=== PATIENT | male | born 1955 | race Caucasian/White ===

== ENCOUNTER 2017-02-06 08:20 | Inpatient (IN) | payer OTHER ==
[2017-01-21 10:51] VITALS: Ht 177.8 cm; Wt 91.9 kg
--- NOTE | 2017-01-21 11:31 | PAT Medication Instructions ---
Service Date Jan 21, 2017. Current Home Medication List Allopurinol (Zyloprim), 300 MG PO QAM Atenolol (Tenormin), 50 MG PO BID Felodipine (Plendil), 10 MG PO QAM Meloxicam (Mobic), Unknown Dose PO QAM Potassium (Potassium), 1 TAB PO QAM Pravastatin (Pravachol ), 10 MG PO QAM Sertraline (Zoloft), 25 MG PO QAM Terazosin (Hytrin), 1 CAP PO HS Medication Instructions For Your Scheduled Surgery - Check with surgeon for instructions: Meloxicam (Mobic), Unknown Dose PO QAM - Hold the following medications the morning of surgery: Potassium (Potassium), 1 TAB PO QAM - Take the following medications the morning of surgery with a sip of water: Sertraline (Zoloft), 25 MG PO QAM Pravastatin (Pravachol ), 10 MG PO QAM Atenolol (Tenormin), 50 MG PO BID Allopurinol (Zyloprim), 300 MG PO QAM Felodipine (Plendil), 10 MG PO QAM - Take the following medications as scheduled the night before surgery: Terazosin (Hytrin), 1 CAP PO HS Atenolol (Tenormin), 50 MG PO BID If you have any questions please call us at [phone] or [phone] or [phone]
[2017-01-21 12:38] LABS: BASO % 0.6 %; BASO ABS # 0.04 K/uL (0-0.2); COMPLETE YES; EOS % 1.3 %; IG% 0.1 %; LYMPH % 20.8 %; LYMPH ABS # 1.48 K/uL (1.2-3.4); MEAN CELL VOLUME 97.6 fL (80-100); MEAN CORPUSCULAR HGB CONC 32.8 g/dl (32-36); MEAN PLATELET VOLUME 10.8 fL (7.4-10.4); MONO % 5.3 %; NEUT % 71.9 %; PLATELET COUNT 218 K/uL (130-400); WHITE BLOOD COUNT 7.12 K/uL (4.8-10.8)
[2017-01-21 12:41] LABS: URINE APPEARANCE CLEAR (CLEAR); URINE BILIRUBIN NEG (NEG); URINE COLOR YELLOW; URINE EPITHELIAL CELL AUTO 0-5 /lpf (0-5); URINE NITRITE NEG (NEG); URINE SPECIFIC GRAVITY 1.022 (1.000-1.030); UROBILINOGEN NEG (NEG)
[2017-01-21 12:42] LABS: PROTHROMBIN TIME (PATIENT) 10.6 SECONDS (9.0-12.0)
[2017-01-21 12:51] LABS: MANUAL MICROSCOPIC REQUIRED? NO; REVIEW REQ? NO
[2017-01-21 13:04] LABS: ESTIMATED AVERAGE GLUCOSE 97 mg/dl; HA1C FLAG Normal (Normal)
[2017-01-21 13:48] LABS: BUN/CREATININE RATIO 12.6 (10-20); CREATININE 0.67 mg/dl (0.60-1.40); POTASSIUM 4.5 mmol/L (3.5-5.1)
--- NOTE | 2017-02-05 14:17 | HISTORY & PHYSICAL EXAMINATION ---
DATE OF ADMISSION: 02/06/2017 CHIEF COMPLAINT: Left hip pain. HISTORY OF PRESENT ILLNESS: The patient is a 61-year-old gentleman with known osteoarthritis about his left hip. He has pain with ambulating and activities of daily living. He has pain with prolonged weightbearing and standing activities. He has difficulty with any kneeling, bending, or squatting activities. He has tried anti-inflammatory medications without significant relief. Due to ongoing pain and disability, the patient now desires to proceed with left total hip arthroplasty. PAST MEDICAL HISTORY: Hypertension and osteoarthritis. PAST SURGICAL HISTORY: Unknown. MEDICATIONS: Felodipine ER 10 mg daily, allopurinol 300 mg daily, sertraline 25 mg daily, terazosin 5 mg at bedtime, atenolol 50 mg 2 times daily, pravastatin 10 mg daily, potassium daily. ALLERGIES: THIOPENTAL, AZITHROMYCIN, PENICILLINS. SOCIAL HISTORY: He states a 13-oddn-iyrr smoking history and moderate alcohol consumption weekly. REVIEW OF SYSTEMS: Noncontributory. PHYSICAL EXAMINATION: GENERAL: Well-nourished, well-developed male who appears his stated age. HEENT: Normocephalic, atraumatic, extraocular movements intact, oropharynx pink and moist. NECK: Supple without adenopathy. LUNGS: Clear to auscultation bilaterally. HEART: Regular rate and rhythm. ABDOMEN: Soft, nontender, nondistended, obese. EXTREMITIES: The upper extremities are within normal limits. The left hip demonstrates limited range of motion. There is limitation of active and passive internal/external rotation with pain at end range. X-RAYS: X-rays were reviewed. He has moderate to severe osteoarthritis about the left hip with near complete loss of the joint space. There are osteophytes about the acetabulum. ASSESSMENT: Left hip degenerative joint disease. PLAN: Risks versus benefits were discussed. Consent was obtained. The patient's primary care physician is Dr. Deleon. We will proceed with left total hip arthroplasty upon preoperative workup and medical clearance.
[~2017-02-06] VITALS: Ht 177.8 cm; Wt 91.9 kg
[2017-02-06] VITALS (9 sets, daily range): BP systolic 114–160; BP diastolic 72–88; PULSE 58–73; TEMP 36.8–37.1; O2SAT 96–100
[2017-02-06] MEDS: TRANEXAMIC ACID INJ 1,000 MG in SODIUM CHLORIDE 0.9% 100ML 100 ML IV SCH ×2 (06:30→09:50)
--- NOTE | 2017-02-06 07:06 | History & Physical Bridge Note ---
H&P Re-Evaluation Bridge Note: I have examined the patient, reviewed the History & Physical and in the interval since the performance of the History & Physical I have noted the following changes of clinical significance: No changes noted
[~2017-02-06 08:20] MED LIST: ACETAMINOPHEN 500 MG TAB PO SCH; ALLO300T2 PO; ATEN50TA8 PO; BUPIVACAINE 0.5 % 5 MG/1 ML PF 10ML VIAL ONE; CEFAZOLIN 2000 MG/60 ML D5W 60 ML IV SCH; CeleBREX 200 MG CAP PO SCH; DEXAMETHASONE 4 MG TAB PO SCH; FAMOTIDINE 20 MG TAB PO SCH; FELO10TA2 PO; GABAPENTIN 300 MG CAP PO SCH; LACTATED RINGER'S 1000ML 1,000 ML IV SCH; LACTATED RINGER'S 1000ML 500 ML IV SCH; MELO7.5T5 PO; METOCLOPRAMIDE HCL 10 MG TAB PO SCH; POTA99TA PO; PRAV20TA PO; SERT25TA PO; TERA5CAP PO; TRANEXAMIC ACID INJ 1,000 MG in SODIUM CHLORIDE 0.9% 100ML 100 ML IV SCH
[2017-02-06] MEDS ORDERED: LIDOCAINE HCL 2% 2 ML VIAL (20MG/ML) ONE (08:28)
[2017-02-06] MEDS ORDERED: PROPOFOL IV EMULSION 10 MG/ML 20 ML VIAL IV ONE ×2 (08:28→11:24)
[2017-02-06] MEDS ORDERED: MIDAZOLAM HCL 1 MG/ML 2ML VIAL ONE (08:29)
[2017-02-06] MEDS ORDERED: FENTANYL CITRATE INJ 50 MCG/1 ML 2 ML VIAL ONE (08:29)
[2017-02-06] MEDS ORDERED: MULT-506 PO (08:46)
[2017-02-06] MEDS ORDERED: FENTANYL CITRATE INJ 50 MCG/1 ML 2 ML VIAL IV PRN (09:30)
[2017-02-06] MEDS ORDERED: ONDANSETRON INJ 2 MG/ML 2 ML VIAL IV PRN ×2 (09:30→11:45)
[2017-02-06] MEDS ORDERED: NALOXONE HCL 0.4 MG/1 ML VIAL/CARP IV PRN (09:30)
[2017-02-06] MEDS ORDERED: PHENYLEPHRINE 100MCG/ML 5ML SYR IV PRN (09:30)
[2017-02-06] MEDS ORDERED: ATROPINE SULFATE 0.1 MG/ML 5ML SYR IV PRN (09:30)
[2017-02-06] MEDS ORDERED: LABETALOL HCL IV 5 MG/ML 20ML IV PRN (09:30)
[2017-02-06] MEDS ORDERED: HYDROmorphone INJ 2 MG/ML SYR/VIAL IV PRN (09:30)
[2017-02-06] MEDS ORDERED: FLUMAZENIL 0.1 MG/1 ML 10 ML VIAL IV PRN (09:30)
[2017-02-06] MEDS ORDERED: EpHEDrine SULFATE INJ 50 MG/ML AMP IV PRN (09:30)
[2017-02-06] MEDS ORDERED: MEPERIDINE HCL 25 MG/ML CARP IV PRN (09:30)
[2017-02-06] MEDS ORDERED: POVIDONE-IODINE OP SOLN 30 ML BTL ONE (09:50)
[2017-02-06] MEDS ORDERED: BACITRACIN 50000 UNIT VIAL ONE (09:50)
[2017-02-06] MEDS ORDERED: ROPIVACAINE 5MG/ML 30 ML 150 MG, BUPIVACAINE/EPINEPHR 0.5% MPF 30 ML, KETOROLAC TROMETH... INFIL SCH ×7 (10:15)
[2017-02-06] MEDS ORDERED: ONDANSETRON INJ 2 MG/ML 2 ML VIAL ONE (10:54)
[2017-02-06] MEDS ORDERED: EpHEDrine SULFATE INJ 50 MG/ML AMP ONE (11:00)
--- NOTE | 2017-02-06 11:36 | [facility] Post Operative Brief Note ---
Immediate Operative Summary Operative Date Feb 06, 2017. Pre-Operative Diagnosis Left Hip Degenerative Joint Disease Post-Operative Diagnosis Left Hip Degenerative Joint Disease Procedure(s) Performed Left Total Hip Arthroplasty Surgeon Dr. Chun Garcia [place] Supervisor Surgeon(s) Kushal Watt PA-C Estimated Blood Loss 100ml Findings severe OA Specimens A. Left Femoral Head Complication(s) None Disposition Recovery Room / PACU
[2017-02-06] MEDS ORDERED: BISACODYL 10 MG SUPP PR PRN (11:45)
[2017-02-06] MEDS ORDERED: MoRPHine SULFATE 2 MG/ML CARP IV PRN (11:45)
[2017-02-06] MEDS ORDERED: ALUMINUM/MAGNESIUM/SIMETH (MAALOX MAX) 30 ML UDC PO PRN (11:45)
[2017-02-06] MEDS ORDERED: METOCLOPRAMIDE HCL INJ 5 MG/ML 2 ML VIAL IV PRN (11:45)
[2017-02-06] MEDS ORDERED: SOD PHOSPHATE/SOD BIPHOSPHATE ENEMA 132 ML BTL PR PRN (11:45)
[2017-02-06] MEDS ORDERED: DiphenhydrAMINE HCL 50 MG/ML VIAL IV PRN (11:45)
[2017-02-06] MEDS ORDERED: TAMSULOSIN HCL 0.4 MG CAP PO PRN (11:45)
[2017-02-06] MEDS ORDERED: MAGNESIUM HYDROXIDE SUSP 30 ML UDC PO PRN (11:45)
[2017-02-06] MEDS ORDERED: ZOLPIDEM TARTRATE 5 MG TAB PO PRN (11:45)
--- NOTE | 2017-02-06 12:03 | OPERATIVE REPORT ---
DATE OF OPERATION: 02/06/2017 PREOPERATIVE DIAGNOSIS: Osteoarthritis left hip. POSTOPERATIVE DIAGNOSIS: Osteoarthritis left hip. PROCEDURE: Left connective total hip arthroplasty. SURGEON: Dr. Garcia. FLAT BED OPERATOR: Kushal Watt PA-C. ANESTHESIA: Spinal. COMPLICATIONS: None. OPERATION AND FINDINGS: PROCEDURE: Following induction of adequate spinal anesthesia, the patient was placed in right lateral decubitus position and left Julianna-Langenbeck incision was made. Subcutaneous tissue was sharply dissected. Electrocautery used for hemostasis. The fascia was incised throughout the length of the wound and a villasenor scissor placed beneath the short external rotators. The pyriformis was tagged with #1 Vicryl. The short external rotators were divided from the posterior aspect of the femur using electrocautery. These were swept posteriorly. A T-capsulotomy incision was made and the hip was dislocated using a combination of flexion, adduction, and internal rotation. Exposure of the femoral neck with old-style Hohmann and a blunt Hohmann was carried out and a femoral rasp was utilized as a guide for making the appropriate level femoral neck cut. This bone fragment was removed and reserved on the back table. Next, attention was turned to the acetabulum where bone hook was used to retract the femur while the offset retractors were placed anterior and posteriorly. A double-angled Hohmann was placed in superior and anterior position exposing the acetabulum nicely. Acetabular labrum as well as posterior capsule elements were removed using a long knife and a long pickup. Fovea centralis was cleared of all soft tissue. Sequential reamings were carried up to a size 56 and decision was made to proceed with impaction of a size 56 trabecular metal cup. This was impacted and held using a single 35 mm bone screw. The acetabular liner was placed with 15 of elevated posterior wall in the superior and posterior position. Next, attention was turned to the femoral portion of the case where a Bovie and pickup was used to further clear short external rotators from their insertion on the femur. Box osteotome was used to gain access to the femoral canal and the T-handled rasp and a rattail rasp were used to further open and lateral the canal. Sequentially raspings were carried up to a size 6 which gave good fit and fill of the proximal femur. A trial reduction was carried out and size 6 offset femoral neck component was chosen as the size to be used. A +2.5 x 36 mm ceramic femoral head was impacted into position, +0 head was utilized. The trial reduction was stable in all degrees of rotation with no [id number] impingement. The hip was dislocated. The trial components were removed and the final femoral stem, neck, and femoral head combination were assembled on the back table and impacted into position. Hip was relocated. Range of motion checked once again successful and the wound was irrigated. The pyriformis repaired to the greater trochanter using #1 Vicryl [id number] suture. A Hemovac drain was placed and the fascia was closed using #1 Vicryl, subcutaneous tissue was closed using 0 Dexon, and skin was closed with heron. Sterile dressing of Adaptic, 4 x 4's, ABDs, and foam tape was applied. The patient tolerated the procedure well. Recovery room stable. Due to the complex nature of the procedure, the entire surgery was performed with the operational assistance of Kushal Watt PA-C. The certified surgical tech/first assistant, under direct supervision, was involved in the actual performance of all aspects of the surgical procedure including hemostasis, tissue retraction and incision, instrument management, patient positioning, and wound closure. I attest to the content of the Intraoperative Record and any orders documented therein. Any exception s are noted below.
[2017-02-06] MEDS ORDERED: MoRPHine SULFATE 10 MG/ML CARP/VIAL IV PRN (12:30)
[2017-02-06] MEDS ORDERED: MoRPHine SULFATE 4 MG/ML 1 ML CARP\\VIAL IV PRN (12:30)
--- NOTE | 2017-02-06 13:18 | Anesthesiology Progress Note ---
Anesthesia Post Op Note Date & Time Feb 06, 2017 at 13:18 Vital Signs Pain Intensity: 0 Vital Signs Past 12 Hours Date Time Temp Pulse Resp B/P (MAP) Pulse Ox O2 Delivery O2 Flow Rate FiO2 02/06/17 12:45 37.0 64 14 122/69 98 Nasal Cannula 2 02/06/17 12:35 66 14 145/59 98 Nasal Cannula 2 02/06/17 12:25 69 14 112/72 98 Nasal Cannula 2 02/06/17 12:15 63 14 126/72 99 Oxymask 10 02/06/17 12:05 37.0 67 14 121/69 100 Oxymask 10 02/06/17 08:49 36.9 58 18 160/88 96 Room Air Notes Mental Status: alert / awake / arousable, participated in evaluation Pt Amnestic to Procedure: Yes Nausea / Vomiting: adequately controlled Pain: adequately controlled Airway Patency, RR, SpO2: stable & adequate BP & HR: stable & adequate Hydration State: stable & adequate Neuraxial Anesthesia: was administered, sensory block is resolving Anesthetic Complications: no major complications apparent
[2017-02-06] MEDS: D5W AND 1/2NSS + 20MEQ KCL 1,000 ML IV SCH (14:08)
[2017-02-06] MEDS: ACETAMINOPHEN IV 1,000 MG in EMPTY BAG 0 ML IV SCH ×2 (14:39→21:42)
[2017-02-06] MEDS: KETOROLAC TROMETHAMINE 30 MG/ML VIAL IV. SCH ×2 (14:42→19:37)
--- NOTE | 2017-02-06 15:29 | Discharge Instructions ---
Discharge Instructions Date of Service Feb 06, 2017. Admission Reason for Admission: Left Hip Degenerative Joint Disease Discharge Discharge Diagnosis / Problem: Left hip arthritis Discharge Goals Goal(s): Decrease discomfort, Improve function Activity Recommendations Activity Limitations: as noted below Weightbearing Status: Left weightbearing (as tolerated) . Instructions / Follow-Up Instructions / Follow-Up ACTIVITY RECOMMENDATIONS: SELF CARE INSTRUCTIONS AFTER TOTAL HIP REPLACEMENT Until the incision and soft tissues around your hip have healed, there is a possibility that the hip prosthesis could dislocate. A. Observe the following precautions to prevent dislocation: 1. Don't bend your hip greater than 90 degrees. 2. Avoid crossing your legs or ankles while standing or lying. 3. Sit with your feet placed 6 inches apart. 4. When sitting, keep your knees below your hips. Sit on a firm surface, avoid deep, soft chairs and couches. Use an elevated toilet seat in the bathroom. 5. Don't bend over at the waist. Use a long handled shoehorn and a sock aid to help you put on your shoes and socks. A right of way clearer can help you strip picker objects that are too high or too low to reach. 6. Keep car riding to a minimum for at least one month after surgery. B. Your balance may be shaky for a while. Use crutches or a walker until directed by your doctor. C. Use hand rails when walking on stairs. D. Wear low heeled shoes with non-slip soles. E. Be sure that your floors are free of things that could trip you - throw rugs , electrical cords, small objects. Avoid wet and waxed floors, especially with crutches and canes. F. Try to walk several times a day with rest periods between. G. Continue with all the exercises taught to you in the hospital. Again, make walking a part of your daily routine. SPECIAL CARE INSTRUCTIONS: VERY IMPORTANT TO READ AND REVIEW A. You may still be at risk for phlebitis and blood clots. 1. Wear surgical stockings (MITZI hose) for 2 weeks after surgery to improve circulation and reduce swelling. 2. Take Aspirin 81mg twice daily for 4 weeks or as directed by your doctor. This is your blood thinner. 3. High risk patients may be prescribed a stronger blood thinner if necessary. 4. If you are on Coumadin normally, your family doctor/leather repairer should monitor your blood work. Expect a phone call the day of or the day after bloodwork is drawn to adjust your dosage. B. You must take antibiotics before having dental work, bladder, bowel and other surgery. Your doctor will provide you with a permanent card to carry describing precautions. C. Call [facility] if you have a fever, redness or swelling around the incision, cloudy drainage from incision, or sudden increase in pain in your hip, not relieved by your regular pain medication. D. Please call the office at if you have any concerns or questions about your operation or recovery. * YOU MAY SHOWER, NO TUB BATHS UNTIL CLEARED BY YOUR DOCTOR. * WEAR MITZI HOSE 20 HOURS PER DAY FOR 2 WEEKS. * YOU SHOULD USE A WALKER OR CRUTCHES FOR 2-4 WEEKS. THIS WILL HELP PREVENT STRAIN ON YOUR HIP MUSCLE AND ALLOW IT TO HEAL PROPERLY. YOU MAY WEAN TO A CANE TOLERATED. * MOST PATIENTS WILL HAVE HOME NURSING FOR THERAPY. IF YOU DECIDE TO DO OUTPATIENT PHYSICAL THERAPY, PLEASE SCHEDULE THIS 3 TIMES PER WEEK. Silverlon- This is a large adhesive bandage that contains silver ions. This helps your incision heal by fighting off bacteria and protecting it from the outside environment. You are permitted to shower with this dressing. This will remain on your incision for 7 days and then should be removed. Some visible blood or drainage through the dressing window is normal. If there is significant drainage or leaking noted before the 7 days notify your doctor's office immediately. Once removed, keep incision clean and dry. If there is any drainage or redness noted, please call your surgeon. FOLLOW UP VISIT: If appointment is not already scheduled: Please call [facility] to make a follow-up appointment for 2 weeks after your surgery at . Current Hospital Diet Patient's current hospital diet: Regular Diet Discharge Diet Recommended Diet: Regular Diet Procedures Procedures Performed: Left Total Hip Arthroplasty Pending Studies Studies pending at discharge: no Laboratory Results Hemoglobin A1c Test 01/21/17 11:35 Range/Units Estimated Average Glucose 97 mg/dl Hemoglobin A1c 5.0 4.5-5.6 % Medical Emergencies . Who to Call and When: Medical Emergencies: If at any time you feel your situation is an emergency, please call 911 immediately. . Non-Emergent Contact Non-Emergency issues call your: Surgeon Call Non-Emergent contact if: temperature is above 101.5, your pain is not controlled, wound has increased drainage, wound has increased redness . "Provider Documentation" section prepared by Kushal Watt PA-C. . VTE Core Measure Inpt VTE Proph given/why not?: Other Anticoagulation (ASA 81mg bid), T.E.D. Stockings, SCD's [place] Drug Monitoring Program Search Results: patient reviewed within database, no issues identified
--- NOTE | 2017-02-06 15:40 | DIAGNOSTIC IMAGING REPORT ---
LEFT PELVIS/UNILATERAL HIP 1 VIEW HISTORY: 61 years-old Male s/p total hip arthroplasty. COMPARISON: None available TECHNIQUE: AP view the pelvis with frog-leg view of the left hip FINDINGS: There has been recent left total hip arthroplasty without periprosthetic fracture or malalignment. Expected postsurgical soft tissue swelling and air seen about the left hip with surgical drain in place. Vascular calcifications are noted. [id number] degenerative changes involve the right femoral acetabular joint. IMPRESSION: Status post left total hip arthroplasty without complication. The above report was generated using voice recognition software. It may contain grammatical, syntax or spelling errors. Electronically signed by: Asa Blunt M.D. 02/06/2017 3:38 PM Dictated Date/Time: 02/06/2017 3:37 PM
[2017-02-06] MEDS: FERROUS GLUCONATE 324 MG TAB PO SCH (17:29)
[2017-02-06] MEDS ORDERED: TRANEXAMIC ACID INJ 1,000 MG in SODIUM CHLORIDE 0.9% 100ML 100 ML IV ONE (18:00)
[2017-02-06] MEDS: CEFAZOLIN IV 2,000 MG in DEXTROSE 5% 50ML 50 ML IV SCH (18:04)
[2017-02-06] MEDS: OXYCODONE HCL IR 5 MG TAB (IMMEDIATE RELEASE) PO PRN (20:38)
[2017-02-06] MEDS: ASPIRIN 81 MG ECTAB PO SCH (20:38)
[2017-02-06] MEDS: SENNA 8.6 MG TAB PO SCH (20:39)
[2017-02-06] MEDS: DOCUSATE SODIUM 100 MG CAP PO SCH (20:39)
[2017-02-07] VITALS (9 sets, daily range): BP systolic 113–172; BP diastolic 67–98; PULSE 58–69; TEMP 36.8–37.3; O2SAT 97–99
[2017-02-07] MEDS: KETOROLAC TROMETHAMINE 30 MG/ML VIAL IV. SCH ×2 (00:03→05:42)
[2017-02-07] MEDS: D5W AND 1/2NSS + 20MEQ KCL 1,000 ML IV SCH (00:03)
[2017-02-07] MEDS: CEFAZOLIN IV 2,000 MG in DEXTROSE 5% 50ML 50 ML IV SCH (02:29)
[2017-02-07] MEDS: ACETAMINOPHEN IV 1,000 MG in EMPTY BAG 0 ML IV SCH ×3 (05:42→22:46)
[2017-02-07 06:14] LABS: BASO % 0.1 %; BASO ABS # 0.01 K/uL (0-0.2); COMPLETE YES; EOS % 0.1 %; HEMATOCRIT 36.9 % (42-52); IG% 0.3 %; LYMPH ABS # 1.04 K/uL (1.2-3.4); MEAN CELL VOLUME 95.1 fL (80-100); MEAN CORPUSCULAR HEMOGLOBIN 30.9 pg (25-34); MEAN CORPUSCULAR HGB CONC 32.5 g/dl (32-36); MEAN PLATELET VOLUME 10.6 fL (7.4-10.4); MONO % 9.1 %; NEUT % 79.4 %; PLATELET COUNT 175 K/uL (130-400); RED BLOOD COUNT 3.88 M/uL (4.7-6.1); WHITE BLOOD COUNT 9.42 K/uL (4.8-10.8)
--- NOTE | 2017-02-07 07:07 | Orthopedic Progress Note ---
Orthopedic Progress Note Date of Service Feb 07, 2017. Subjective Post OP Day: 1 Reports: feeling well Objective N/V intact, dressing C/D/I (Hemovac in place), toes mobile Date Time Temp Pulse Resp B/P (MAP) Pulse Ox O2 Delivery O2 Flow Rate FiO2 02/07/17 03:22 36.9 58 16 141/78 (99) 99 Room Air 02/07/17 00:05 Room Air 02/06/17 23:44 36.8 67 16 137/76 (96) 96 Room Air 02/06/17 18:59 36.9 73 16 138/82 (100) 100 Nasal Cannula 2.0 02/06/17 16:08 36.9 66 16 125/78 (94) 100 Nasal Cannula 2.0 02/06/17 15:40 Nasal Cannula 2.0 02/06/17 15:07 37.1 63 16 126/77 (93) 99 Nasal Cannula 2.0 02/06/17 14:19 65 18 132/82 (99) 96 02/06/17 14:05 67 18 114/72 (86) 99 02/06/17 13:35 Nasal Cannula 2.0 02/06/17 13:35 65 16 126/83 (97) 97 Nasal Cannula 2.0 02/06/17 13:05 37.0 69 16 135/77 (96) 96 Nasal Cannula 2.0 02/06/17 13:05 96 Nasal Cannula 2.0 02/06/17 13:05 96 Nasal Cannula 2.0 02/06/17 12:45 37.0 64 14 122/69 98 Nasal Cannula 2 02/06/17 12:35 66 14 145/59 98 Nasal Cannula 2 02/06/17 12:25 69 14 112/72 98 Nasal Cannula 2 02/06/17 12:15 63 14 126/72 99 Oxymask 10 02/06/17 12:05 37.0 67 14 121/69 100 Oxymask 10 02/06/17 08:49 36.9 58 18 160/88 96 Room Air Laboratory Results 24 Hours: Test 02/07/17 04:59 White Blood Count 9.42 K/uL Red Blood Count 3.88 M/uL Hemoglobin 12.0 g/dL Hematocrit 36.9 % Mean Corpuscular Volume 95.1 fL Mean Corpuscular Hemoglobin 30.9 pg Mean Corpuscular Hemoglobin Concent 32.5 g/dl Platelet Count 175 K/uL Mean Platelet Volume 10.6 fL Neutrophils (%) (Auto) 79.4 % Lymphocytes (%) (Auto) 11.0 % Monocytes (%) (Auto) 9.1 % Eosinophils (%) (Auto) 0.1 % Basophils (%) (Auto) 0.1 % Neutrophils # (Auto) 7.47 K/uL Lymphocytes # (Auto) 1.04 K/uL Monocytes # (Auto) 0.86 K/uL Eosinophils # (Auto) 0.01 K/uL Basophils # (Auto) 0.01 K/uL Assessment & Plan Assessment: 61 yo male stable POD #1 s/p left FELIPA Plan: 1. Med management 2. DVT prophylaxis- ASA, SCDs 3. PT/OT 4. D/C planning- home w/ HH
--- NOTE | 2017-02-07 08:11 | Anesthesiology Progress Note ---
Anesthesia Post Op Note Date & Time Feb 07, 2017 at 08:11 Vital Signs Pain Intensity: 2.0 Vital Signs Past 12 Hours Date Time Temp Pulse Resp B/P (MAP) Pulse Ox O2 Delivery O2 Flow Rate FiO2 02/07/17 08:07 99 Room Air 02/07/17 07:59 168/97 (120) 02/07/17 07:56 36.8 64 18 172/98 (122) 99 Room Air 02/07/17 03:22 36.9 58 16 141/78 (99) 99 Room Air 02/07/17 00:05 Room Air 02/06/17 23:44 36.8 67 16 137/76 (96) 96 Room Air Notes Mental Status: alert / awake / arousable, participated in evaluation Pt Amnestic to Procedure: Yes Nausea / Vomiting: adequately controlled Pain: adequately controlled Airway Patency, RR, SpO2: stable & adequate BP & HR: stable & adequate Hydration State: stable & adequate Neuraxial Anesthesia: sensory block resolved Anesthetic Complications: no major complications apparent
[2017-02-07] MEDS: FERROUS GLUCONATE 324 MG TAB PO SCH ×3 (09:19→18:20)
[2017-02-07] MEDS: DOCUSATE SODIUM 100 MG CAP PO SCH ×2 (09:20→20:14)
[2017-02-07] MEDS: ASPIRIN 81 MG ECTAB PO SCH ×2 (09:20→20:14)
[2017-02-07] MEDS: PANTOprazole SOD 40 MG TAB PO SCH (09:20)
[2017-02-07] MEDS: MULTIVITAMIN TAB PO SCH (09:20)
[2017-02-07] MEDS ORDERED: NURSING VERBAL MED ORDER ONE (11:30)
[2017-02-07] MEDS: OXYCODONE HCL IR 5 MG TAB (IMMEDIATE RELEASE) PO PRN (18:24)
[2017-02-07] MEDS: CeleBREX 200 MG CAP PO SCH (20:13)
[2017-02-07] MEDS: SENNA 8.6 MG TAB PO SCH (21:54)
[2017-02-08] MEDS: ACETAMINOPHEN IV 1,000 MG in EMPTY BAG 0 ML IV SCH (05:52)
[2017-02-08 07:31] VITALS: BP 137/83; PULSE 65; TEMP 36.9; O2SAT 98
--- NOTE | 2017-02-08 08:23 | Orthopedic Progress Note ---
Orthopedic Progress Note Date of Service Feb 08, 2017. Subjective Post OP Day: 2 Reports: feeling well, pain controlled w PO medications, Denies: chest pain, SOB , nausea / vomiting, light headedness, calf pain Objective calves soft nontender, N/V intact, hip located, capillary refill less than 2 sec., dressing C/D/I, A&O x3, toes mobile Date Time Temp Pulse Resp B/P (MAP) Pulse Ox O2 Delivery O2 Flow Rate FiO2 02/08/17 07:31 36.9 65 18 137/83 (101) 98 Room Air 02/08/17 00:00 Room Air 02/07/17 23:03 37.2 69 16 113/67 (82) 98 Room Air 02/07/17 15:35 Room Air 02/07/17 15:17 37.3 63 17 152/87 (108) 97 Room Air 02/07/17 14:00 132/82 (99) 02/07/17 11:51 36.9 64 18 164/94 (117) 97 Room Air 02/07/17 09:23 150/95 (113) Assessment & Plan Assessment: 61 yo male stable POD #2 s/p left FELIPA Plan: 1. Med management 2. DVT prophylaxis- ASA, SCDs 3. PT/OT 4. D/C planning- home w/ HH Patient seen and examined, agree with above. Inhouse Planning Pain Management: Celebrex, Oxycontin, PO Tylenol, other (oxycodone) DVT Prophylaxis: TEDs, SCDs, ASA Discharge Planning Discharge Planning: home with home health Pain Management: Celebrex, Oxycontin, PO Tylenol, other (oxycodone) DVT Prophylaxis: TEDs, ASA Therapy: Physical Therapy
[2017-02-08] MEDS ORDERED: ASPEC81 PO (08:31)
[2017-02-08] MEDS ORDERED: OXYSR/10 PO (08:31)
[2017-02-08] MEDS ORDERED: CLB200 PO (08:31)
[2017-02-08] MEDS ORDERED: RXC5 PO (08:31)
[2017-02-08] MEDS ORDERED: ACET-1257 PO (08:31)
[2017-02-08] MEDS ORDERED: ONDA8TAB6 PO (08:31)
[2017-02-08] MEDS ORDERED: FRRG PO (08:31)
[2017-02-08 09:04] VITALS: BP 116/73; PULSE 70
[2017-02-08] MEDS: FERROUS GLUCONATE 324 MG TAB PO SCH (09:05)
[2017-02-08] MEDS: PANTOprazole SOD 40 MG TAB PO SCH (09:05)
[2017-02-08] MEDS: MULTIVITAMIN TAB PO SCH (09:06)
[2017-02-08] MEDS: DOCUSATE SODIUM 100 MG CAP PO SCH (09:50)
[2017-02-08] MEDS: ASPIRIN 81 MG ECTAB PO SCH (09:51)
[2017-02-08] MEDS: CeleBREX 200 MG CAP PO SCH (09:51)
[2017-02-08 11:38] VITALS: BP 116/73; PULSE 70; TEMP 36.9; O2SAT 98
[2017-02-08] MEDS: OXYCODONE HCL IR 5 MG TAB (IMMEDIATE RELEASE) PO PRN (11:57)
--- NOTE | 2017-02-19 20:50 | DISCHARGE SUMMARY ---
CHIEF COMPLAINT: Left hip pain. Please see complete history and physical examination. HOSPITAL COURSE: The patient underwent left total hip arthroplasty without complication. He tolerated the procedure well and was discharged to the recovery room in stable condition. His postoperative course was relatively uneventful. His postoperative pain was reasonably well controlled with a combination of spinal anesthesia, intraoperative joint injection, IV and oral pain medications. He was started on aspirin for DVT prophylaxis. He also utilized MITZI stockings and SCDs for additional prophylaxis. His H&H was stable and did not require transfusion. His surgical drain was discontinued on postoperative day 2. Surgical dressing will remain in place for approximately 7 days postoperative. He tolerated postoperative physical therapy reasonably well as he was ambulating and transferring appropriately. He was observing all total hip precautions. He was discharged home on postoperative day 2. He will continue his physical therapy at home. He will continue his aspirin for DVT prophylaxis and follow up at our office in approximately 10-14 days for his initial postop evaluation.
== END 2017-02-08 12:12 | disposition home health service (06) | DRG 470 ==
LOC: C.ACU 08:20 → C.3E 11:43 → ENRESERV 12:25
PROC: 0SRB03A Replacement of Left Hip Joint with Ceramic Synthetic Substitute, Uncemented, Open Approach (ICD-10-PCS; principal; 2017-02-06 10:00)
DX: M16.12 Unilateral primary osteoarthritis, left hip (principal); I10 Essential (primary) hypertension; Z79.899 Other long term (current) drug therapy

== ENCOUNTER 2018-12-01 08:56 | Inpatient (IN) ==
--- NOTE | 2018-11-30 15:23 | Anesthesiology Consultation ---
Date of Service November 30, 2018 Assessment & Plan (1) Encounter for pre-operative examination: Patient reports drinking 6-7 beers on average per day. He did admit to having "a few beers" prior to his 1200 PAT appointment on 09/18. He states that he can go a day without drinking, and has been hospitalized for surgeries before without any issues with detoxing. CHECK BMP AM DOS PCP Clearance 11/30/18 = "would advise anticoagulation other than 325mg ASA due to patient's risk factors after surgery.* Cleared for surgery." *surgeon is aware and will be putting pt on Xarelto for post-op anticoagulation. Chart Review Chart Review: Acceptable Risk for Surgery (pending BMP AM DOS) and Patient seen in Pre Admission Testing (on 09/18/18) History Surgery Operation Date: 12/01/18 11:50 Proposed Procedures p Right Total Knee Arthroplasty - Karel Martins DO Height/Weight Height: 5 ft 10 in Weight: 93.44 kg Allergies Allergy/AdvReac Type Severity Reaction Status Date / Time mivacurium Allergy Severe TONGUE Verified 11/20/18 10:26 SWELLING thiopental Allergy Severe anaphylaxis Verified 11/20/18 10:26 amoxicillin Allergy Unknown Swelling Verified 11/20/18 10:26 of Lip/Tongue/Throat Penicillins Allergy Unknown hives Verified 11/20/18 10:26 Additional Notes: *pt thought mivacurium was a BP medication. He is not aware of any anesthetic allergies except sodium pentathol. Mivacurium likely confused for other medication. *Pt had reaction to Thiopental when shoulder was being set in ER 35+ yrs ago. Medications Home Medications Medication Instructions Recorded Confirmed Last Taken allopurinol 300 mg PO QAM 09/16/18 11/20/18 Unknown atenolol 50 mg PO BID 09/16/18 11/20/18 Unknown celecoxib [Celebrex] 200 mg PO QAM 09/16/18 11/20/18 Unknown diphenhydramine-acetaminophen 1 tab PO HS 09/16/18 11/20/18 Unknown [Tylenol PM Extra Strength] multivitamin 1 tab PO QAM 09/16/18 11/20/18 Unknown potassium 99 mg PO QAM 09/16/18 11/20/18 Unknown pravastatin 10 mg PO DAILY 09/16/18 11/20/18 Unknown sertraline 25 mg PO DAILY 09/16/18 11/20/18 Unknown felodipine 10 mg PO QAM 11/20/18 11/20/18 Unknown Past Medical History Medical History BPH (benign prostatic hyperplasia) Carotid stenosis 50-69% B/L, being medically managed by PCP Depression ETOH abuse Gout Hard of hearing Hyperlipidemia Hypertension Osteoarthritis Exercise / Class Metabolic Activity III < 4 Walking/Shop/Light housework (Denies CP or SOB with ambulation; avoids stairs due to knee pain) Past Surgical History Surgical History History of hernia repair INGUINAL X 3 History of surgery RT HAND History of tooth extraction History of total hip arthroplasty LT L [facility] 01/2017 SAB x 1 attempt, no issues noted on record. Past Anesthesia History No Hx of Anesthesia Complications and No Family Hx of Anesthesia Complications Social History Smoking Status: Current every day smoker tobacco type: cigarettes Smoking cigarettes per day: 1 PPD Do You Dip or Chew Tobacco: Yes Hx Alcohol Use: Yes Alcohol type: beer alcohol intake frequency: 3 or more drinks per day Alcohol Intake Frequency Comment: 6-7 beers per day Hx Substance Use: Yes substance use type: marijuana (daily) Physical Exam Vital Signs (FROM 09/18/18 PAT appointment) Vital Signs BP: 95/55 (pt denies lightheadedness or dizziness currently but states this is low for him) Rpt manual 100/62. P: 64bpm SPO2: 96% RA T: 98.0 F R: 16 Physical Exam (FROM 09/18/18 PAT APPOINTMENT) ENMT Mouth: + dentures (full upper) and + edentulous Thyromental Distance: < 3.5 Finger Breadths (3) Mallampati Class: II Neck + facial hair (very long thick full bushy quintanilla and mustache. Pt will trim around mouth.); neck extension not limited Respiratory normal respiratory effort Auscultation: lungs clear to auscultation bilaterally Cardiovascular Rate/Rhythm: regular rate and regular rhythm Heart Sounds: no murmur Vessels: no carotid bruit Extremities: no edema Testing Laboratory Results 11/18/18 WBC: 8.0 H/H: 15.3/47.5 PLATELETS: 184 UA: + for bacteria (surgeon made aware) Electrocardiogram Date: 09/15/18 Findings: + NSR @ (69) Chest X-Ray Date: 09/18/18 Findings: + NAD Other Testing Carotid Doppler = 09/18/18 No significant interval change since 10/24/2017. Stable moderate 50-69% stenosis of the bilateral carotid bulb/proximal internal carotid arteries.
[~2018-12-01 08:56] MED LIST changes: -ALLO300T2 PO; -ATEN50TA8 PO; -CEFAZOLIN 2000 MG/60 ML D5W 60 ML IV SCH; +CLINDAMYCIN 600 MG/54 ML BAG IV SCH; +CLINDAMYCIN PHOS 300 MG/2 ML VIAL IV SCH; -DEXAMETHASONE 4 MG TAB PO SCH; -FELO10TA2 PO; -GABAPENTIN 300 MG CAP PO SCH; +GABAPENTIN 300 MG x 2 PO SCH; -LACTATED RINGER'S 1000ML 1,000 ML IV SCH; -LACTATED RINGER'S 1000ML 500 ML IV SCH; +LR 500ML BOLUS, THEN 15ML/HR IV SCH; -MELO7.5T5 PO; -METOCLOPRAMIDE HCL 10 MG TAB PO SCH; -POTA99TA PO; -PRAV20TA PO; +ROPIVACAINE 0.5% 5 MG/ML 30 ML VIAL ONE; +ROPIVACAINE 0.5% HCL/PF 150 MG, BUPIVACAINE 0.5% MPF 30 ML, EPINEPHrine 30MG/30ML (OR U... INFIL SCH; -SERT25TA PO; -TERA5CAP PO; +TRANEXAMIC ACID 1,000 MG **IV Intra-op IV SCH; +TRANEXAMIC ACID 1,000 MG **IV Pre-op IV SCH; -TRANEXAMIC ACID INJ 1,000 MG in SODIUM CHLORIDE 0.9% 100ML 100 ML IV SCH; +dexAMETHasone 4 MG TAB PO SCH
[2018-12-01 09:50] LABS: BUN Creatinine Ratio 9.1 (10-20); Calcium 9.7 mg/dl (8.5-10.1); Creatinine Clr Calc Pharmacy 103.2 ml/min; Potassium 4.2 mmol/L (3.5-5.1)
--- NOTE | 2018-12-01 10:02 | History & Physical Bridge Note ---
Date of Service December 01, 2018 History & Physical Bridge Note I have examined the patient, reviewed the History & Physical and in the interval since the performance of the History & Physical I have noted the following changes of clinical significance: no changes noted
[2018-12-01] MEDS ORDERED: MIDAZOLAM HCL 1 MG/ML 2ML VIAL ONE (10:04)
[2018-12-01] MEDS ORDERED: fentaNYL citrate 100 MCG/2 ML VIAL ONE (10:04)
[2018-12-01] MEDS ORDERED: ORTHO JOINT ANESTHETIC ONE (10:45)
[2018-12-01] MEDS ORDERED: BACITRACIN INJ 50,000 UNIT VIAL ONE (10:45)
[2018-12-01] MEDS ORDERED: PROPOFOL IV EMULSION 10 MG/ML 20 ML VIAL IV ONE (11:29)
[2018-12-01] MEDS ORDERED: LIDOCAINE HCL 2% 2 ML VIAL/AMP(20MG/ML) INFIL ONE (11:29)
[2018-12-01] MEDS ORDERED: ATROPINE SULFATE 0.1 MG/ML 10ML SYR IV PRN (11:37)
[2018-12-01] MEDS ORDERED: PHENYLEPHRINE 100MCG/ML 5ML SYR IV PRN (11:37)
[2018-12-01] MEDS ORDERED: KETOROLAC 30 MG/ML VIAL IV PRN (11:37)
[2018-12-01] MEDS ORDERED: HYDROmorphone INJ 1 MG/ML SYRINGE IV PRN ×2 (11:37→13:41)
[2018-12-01] MEDS ORDERED: ePHEDrine sulfate 50 MG/ML AMP IV PRN (11:37)
[2018-12-01] MEDS ORDERED: ONDANSETRON INJ 2 MG/ML 2 ML VIAL IV PRN ×2 (11:37→13:41)
--- NOTE | 2018-12-01 12:15 | Operative Report ---
Post Operative Report Pre & Post Diagnosis Operation Date: 12/01/18 11:50 Pre-Op Diagnosis: Right Knee Osteoarthritis Post-Op Diagnosis: Right Knee Osteoarthritis Procedure Operation Date: 12/01/18 11:50 Actual Procedures p Right Total Knee Arthroplasty(Right) utilizing [employer] journey to non- block total knee arthroplasty size 7 femur 7 tibia 12 polyethylene 32 oval p mary Martins DO Surgeon Karel Martins DO [employer] Remover Geovani MARRERO Estimated Blood Loss 5 Findings Consistent with Post-Op Diagnosis Patient presents with severe end-stage degenerative joint disease involving the right knee is no response to conservative therapy she presents for total knee arthroplasty times surgery patient had evidence of eburnated bone subchondral sclerosis with marginal osteophytes ligamentous laxity with a moderate to large effusion no response to conservative management Specimens Bone and cartilage Drains Medium bore Hemovac Complications none Disposition Accompanied Patient To Recovery: No Disposition: Recovery Room Indications Patient presents as a 63-year-old white male being seen medically for severe end-stage right femoral joint disease right knee no response to conservative management and physical therapy and that left her with rest activity modification corticosteroid injections Visco supplementation patient is failed all attempts presents for right total knee arthroplasty Description of Procedure After proper prepping and draping of the Right lower extremity anterior midline incision was made over the region of the extensor extensor mechanism after meticulous hemostasis was obtained and maintained in subcutaneous tissues a medial parapatellar incision was made The patella was subluxed lateralward the medial lateral gutter were cleaned from any hypertrophic synovitis and scar tissue of the distal femoral block was placed and the distal femoral osteotomy cut was made subsequently the chamfers anterior and posterior osteotomy cuts were made utilizing the 4-in-1 block the tibia was subsequently subluxed anteriorward medial and ateral meniscal remnants were excised in their entirety remnants of the anterior and posterior cruciate ligaments were excised in their entirety excellent exposure of the proximal tibia was obtained the tibial osteotomy guide was placed on the proximal tibial osteotomy cut was made once again the knee was irrigated with copious amounts of sterile saline solution the patella was subsequently everted lateralward thickened scar tissue around the patella was removed the patella was subsequently cut utilizing a freehand technique and was drilled prepared for final preparation and placement of patella socially flexion-extension gaps were checked and the equal and symmetric trials were placed to the appropriate femoral and tibial trials with poly-spacer being placed for equal flexion and extension gaps and full range of motion including extension to 0 and flexion to 140 the trial components after having been taken to recovery range of motion was subsequently removed meticulous hemostasis was obtained and maintained subsequently a knee block injection of joint cocktail including ropivacaine 0.5% 150 mg. Bupivacaine 0.5% epinephrine 1-200,030 mL's toradol 30 mg dexamethasone 4 mg ketamine 10 mg clonidine 100 micrograms normal saline solution 30 mg was infiltrated into the soft tissues of the posterior knee medial lateral gutters and periosteal synovium special attention was paid to protect neurovascular structures at all times subsequently trial components having been removed the knee was irrigated with sterile saline solution. debris was removed the proximal tibia was subsequently prepared and was made ready for the placement of the tibial component tibial component was also cemented and tamped into position the femoral component was subsequently placed and cemented in the position the patellar component was subsequently cemented in position because hemostasis once again obtained and maintained wound having been thoroughly irrigated with debridement and debridement lavage was performed as well as a medial parapatellar incision closed with #1 Vicryl in interrupted fashion subcutaneous was closed with #2 Vicryl skin was closed with skin clips. PA-C was necessary for prepping and drapping as well as wound closure of deep fascia Sub cutaneous tissue and skin and was necessary for the case. A sterile compressive dressing was placed patient was taken to recovery in stable condition of report dictated by Eliezer I attest to the content of the Intraoperative Record and any orders documented therein. Any exceptions are noted below. I attest to the content of the Intraoperative Record and any orders documented therein. Any exceptions are noted below.
--- NOTE | 2018-12-01 13:13 | History & Physical Report ---
Date of Service December 01, 2018 Date of Surgery: 12/01/18 Assessment & Plan (1) Tricompartment osteoarthritis of right knee: Further care discussed with patient and at this point in time has failed conservative measures and would like to proceed with a right total knee replacement on 12/01/18. Plan on discharge will be home with home health physical therapy. DVT prophalaxis with TEDs, SCDs and will also place on Xarelto at the recommendation of his PCP for a month postop. Patient will have follow up appointment in our office two weeks post op for staple/suture removal and re- evaluation. Patient otherwise has no other questions or concerns. History of Present Illness Chief Complaint: right knee pain Primary Care Provider: Clovis Deleon MD 63 year old male who presents for pre-op evaluation prior to a right total knee replacement at [facility] by dr walton on 12/01/18. he has tried and failed conservative measures including oral NSAIDS, cortisone injection and previous visco with minimal relief. his current pain is 6/10 and worst is 8/10. his pain has now got to the point is affecting his ADLs including standing, walking and using stairs. he admits to pain, decreased range of motion and weakness. describes it as sharp and stabbing. Allergies Allergy/AdvReac Type Severity Reaction Status Date / Time mivacurium Allergy Severe TONGUE Verified 12/01/18 09:28 SWELLING thiopental Allergy Severe anaphylaxis Verified 12/01/18 09:28 amoxicillin Allergy Unknown Swelling Verified 12/01/18 09:28 of Lip/Tongue/Throat Penicillins Allergy Unknown hives Verified 12/01/18 09:28 Home Medications Home Medications Medication Instructions Recorded Confirmed Type allopurinol 300 mg PO QAM 09/16/18 12/01/18 History atenolol 50 mg PO BID 09/16/18 12/01/18 History celecoxib [Celebrex] 200 mg PO QAM 09/16/18 12/01/18 History diphenhydramine-acetaminophen 1 tab PO HS 09/16/18 12/01/18 History [Tylenol PM Extra Strength] multivitamin 1 tab PO QAM 09/16/18 12/01/18 History potassium 99 mg PO QAM 09/16/18 12/01/18 History pravastatin 10 mg PO DAILY 09/16/18 12/01/18 History sertraline 25 mg PO DAILY 09/16/18 12/01/18 History felodipine 10 mg PO QAM 11/20/18 12/01/18 History Past Med/Surg History Medical History BPH (benign prostatic hyperplasia) Carotid stenosis 50-69% B/L, being medically managed by PCP Depression ETOH abuse Gout Hard of hearing Hyperlipidemia Hypertension Osteoarthritis Surgical History History of hernia repair INGUINAL X 3 History of surgery RT HAND History of tooth extraction History of total hip arthroplasty LT Social History Preferred Language: Azeri Communication Ability: Effective Enterostomal Therapy Nurse Required: No Beliefs That Will Affect Care: None Current Living Situation: Spouse Other Information That Helps Us Care for You: No Feels Safe at Home: Yes Smoking Status: Current every day smoker Tobacco Type: cigarettes Cigarettes Per Day: 1 PPD Do You Dip or Chew Tobacco: Yes Second Hand Exposure: Yes Tobacco Cessation Education Requested by Patient: No Hx Alcohol Use: Yes Alcohol type: beer Hx Substance Use: Yes substance use type: marijuana (daily) Review of Systems Review of Systems: All systems reviewed & are unremarkable except as noted in HPI & below Constitutional: no fever, no chills and no sweats Respiratory: no cough and no dyspnea Cardiovascular: no chest pain, no dyspnea and no orthopnea Gastrointestinal: no nausea and no vomiting Musculoskeletal: as per Subjective / HPI Physical Exam Physical Exam: HT: 5ft 10 in Wt: 90.35kg BP: 149/93 Pulse: 70 Resp: 18 Constitutional: WD/WN, vitals as above no acute distress Respiratory: normal respiratory effort, lungs clear to auscultation no respiratory distress and does not use accessory muscles Cardiovascular: RRR, no murmur, no edema Gastrointestinal (Abdomen): normal bowel sounds, soft, nontender, no hepatosplenomegaly Musculoskeletal: Right Knee Exam- He ambulates with a limp, overall varus alignment, no atrophy or ecchymosis, mild effusion, diffuse tenderness to the knee greatest over medial compartment,donna's negative, Jewels's - lateral positive, Jewels's - medial positive, Posterior drawer- negative, anterior drawer negative, valgus stress negative, varus stress negative, no extensor lag, pain with active range of motion, less pain with passive painful ROM, Range of motion 0/3/110. No pain with active/passive ROM of ankle. Lower extremity strength normal. Lower extremity neuro-vascular is normal Results & Data Vital Signs (Past 12 Hours) Vital Signs Temp Pulse Resp BP Pulse Ox 12/01/18 09:33 37.2 C 70 18 149/93 H 97 Diagnostic Findings Right Knee X-ray on Jacoby Ceballos confirms degenerative changes to the right knee, with narrowing of the medial compartment and patello-femoral joint with patellar spurring noted, findings showing joint space narrowing of the medial compartment and patello-femoral joint, osteophyte formation and subchondral sclerosis noted. overall varus alignment. no acute bony pathology noted.
[2018-12-01] MEDS ORDERED: ALUMINUM/MAGNESIUM SUSP 30 ML UDC PO PRN (13:41)
[2018-12-01] MEDS ORDERED: NALOXONE HCL 0.4 MG/1 ML VIAL/CARP IV PRN (13:41)
[2018-12-01] MEDS ORDERED: SODIUM CHLORIDE 0.9% 1000ML 1,000 ML IV SCH (13:41)
[2018-12-01] MEDS ORDERED: METOCLOPRAMIDE HCL INJ 5 MG/ML 2 ML VIAL IV PRN (13:41)
[2018-12-01] MEDS ORDERED: BISACODYL 10 MG SUPP PR PRN (13:41)
[2018-12-01] MEDS ORDERED: MAGNESIUM HYDROXIDE SUSP 30 ML UDC PO PRN (13:41)
--- NOTE | 2018-12-01 13:45 | XRay Report ---
XR knee RT 2V routine CLINICAL HISTORY: 63 years-old Male presenting with Post-op Total Knee. TECHNIQUE: Frontal and crosstable lateral views of the right knee were obtained. COMPARISON: None. FINDINGS: Postsurgical changes of total right knee arthroplasty with patellar resurfacing. No periprosthetic fr acture or lucency. No malalignment. Expected intra-articular and soft tissue emphysema. A surgical dr sullivan is in place. Atherosclerotic calcifications noted. IMPRESSION: Expected postsurgical appearance status post total right knee arthroplasty with patellar resurfacing. Electronically signed by: Cornelio Salgado M.D. 12/01/2018 1:43 PM
--- NOTE | 2018-12-01 14:00 | Anesthesiology Progress Note ---
Date of Service December 01, 2018 Anesthesia Post Procedure Vital Signs Vital Signs: Temp Pulse Pulse Resp BP Pulse Ox 12/01/18 13:35 36.6 C 52 L 14 117/64 94 12/01/18 13:25 61 18 121/64 94 12/01/18 13:15 58 L 17 146/66 H 95 12/01/18 13:06 71 15 153/73 H 96 12/01/18 12:58 36.5 C 58 L 16 131/68 99 12/01/18 09:33 37.2 C 70 18 149/93 H 97 Pain Intensity Right Knee: Pain Intensity: 0 Transfer of Care Handoff Completed per policy Notes Mental Status: alert / awake / arousable Patient Amnestic to Procedure: Yes Nausea / Vomiting: adequately controlled Pain: adequately controlled Airway Patency, RR, SpO2: stable & adequate BP & HR: stable & adequate Hydration State: stable & adequate Neuraxial Anesthesia: was administered and sensory block is resolving Anesthetic Complications: no major complications apparent
[2018-12-01] MEDS: KETOROLAC 30 MG/ML VIAL IV SCH ×2 (15:18→20:02)
[2018-12-01] MEDS: ACETAMINOPHEN 500 MG TAB PO SCH ×2 (16:17→23:26)
[2018-12-01] MEDS: CLINDAMYCIN 600 MG in DEXTROSE 5% 50 ML IV SCH (19:20)
[2018-12-01] MEDS: ATENOLOL 50 MG TABLET PO SCH (20:02)
[2018-12-01] MEDS: DOCUSATE SODIUM 100 MG CAP PO SCH (20:02)
[2018-12-01] MEDS: SENNA 8.6 MG TAB PO SCH (20:02)
[2018-12-01] MEDS ORDERED: ASPIRIN 81 MG ECTAB PO SCH (21:00)
[2018-12-02] MEDS: KETOROLAC 30 MG/ML VIAL IV SCH ×2 (03:22→08:12)
[2018-12-02] MEDS: CLINDAMYCIN 600 MG in DEXTROSE 5% 50 ML IV SCH (03:22)
[2018-12-02 07:24] LABS: Hematocrit (blood only) 40.2 % (42-52); Hemoglobin 13.7 g/dL (14.0-18.0); Mean Corpuscular Hgb Conc 34.1 g/dL (32-36); Mean Platelet Volume 10.1 fL (7.4-10.4); Platelet Count 175 K/uL (130-400); RDW Coefficient of Variation 14.5 % (11.5-14.5); RDW Standard Deviation 51.7 fL (36.4-46.3); White Blood Count 12.44 K/uL (4.8-10.8)
--- NOTE | 2018-12-02 07:46 | Orthopedic Progress Note ---
Date of Service December 02, 2018 Assessment & Plan (1) Status post total right knee replacement: POD #1 s/p Right TKA pt/ot dvt proph with MITZI/SCD/Xarelto x 1 month plan for d/c home with HHPT when stable +foot drop, the numbness in his foot is improving, able to flex to neutral will cont to monitor, likely from intra-articular injection. Subjective POD #1 s/p right tka mild foot drop, he is able to lift to ankle neutral but unable to maintain full dorsiflexion, he feels that it is improving denies CP/SOB denies Fever/Chills Physical Exam Physical Exam: Vital Signs Temp Pulse Pulse Resp BP Pulse Ox 12/02/18 07:12 36.9 C 62 16 170/98 H 97 12/02/18 04:00 170/91 H 12/02/18 03:31 36.9 C 51 L 14 176/90 H 97 12/01/18 22:45 37.0 C 61 14 168/91 H 98 12/01/18 19:25 37.7 C H 63 16 146/82 H 97 12/01/18 16:54 37.1 C 66 16 163/91 H 97 12/01/18 15:52 37 C 70 16 157/81 H 100 12/01/18 15:26 37.2 C 74 16 156/84 H 96 12/01/18 14:19 57 L 16 152/97 H 94 12/01/18 13:50 36.9 C 57 L 16 145/84 H 94 12/01/18 13:35 36.6 C 52 L 14 117/64 94 12/01/18 13:25 61 18 121/64 94 12/01/18 13:15 58 L 17 146/66 H 95 12/01/18 13:06 71 15 153/73 H 96 12/01/18 12:58 36.5 C 58 L 16 131/68 99 12/01/18 09:33 37.2 C 70 18 149/93 H 97 Intake and Output 12/01/18 12/02/18 12/02/18 22:59 06:59 14:59 Intake Total 294 / 1822 54 / 1822 Output Total 850 / 1950 1035 / 1950 Balance -556 / -128 -981 / -128 Intake: IV 54 / 882 54 / 882 Cleocin 600 mg In D5w 50 ml @ 54 / 108 54 / 108 100 mls/hr IV Q8H DEANDRA Rx#: [id number] Oral 240 / 240 Output: Urine 550 / 1125 575 / 1125 Drain Output 300 / 820 460 / 820 Right Knee Hem ovac 300 / 820 460 / 820 Constitutional: WD/WN, vitals as above no acute distress Musculoskeletal: right leg: NVDI, calf SNT, negative brandie sign. DP palpable, able to wiggle toes, he has good strength with plantar flexion, unable to maintain full dorsiflexion, he can flex to neutral. dressing clean dry and intact. Results & Data Vital Signs (Past 12 Hours) Vital Signs Temp Pulse Resp BP Pulse Ox 12/02/18 07:12 36.9 C 62 16 170/98 H 97 12/02/18 04:00 170/91 H 12/02/18 03:31 36.9 C 51 L 14 176/90 H 97 12/01/18 22:45 37.0 C 61 14 168/91 H 98 Vital Signs Temp 36.9 C 12/02/18 07:12 Pulse 62 12/02/18 07:12 Resp 16 12/02/18 07:12 BP 170/98 H 12/02/18 07:12 Pulse Ox 97 12/02/18 07:12 Intake & Output 12/01/18 12/02/18 12/02/18 18:59 06:59 18:59 Intake Total 1474 / 1822 348 / 1822 Output Total 465 / 1950 1485 / 1950 Balance 1009 / -128 -1137 / -128 Weight 90.4 kg Intake: IV 774 / 882 108 / 882 Cleocin 600 mg In D5w 50 ml @ 108 / 108 100 mls/hr IV Q8H DEANDRA Rx#: [id number] CLEOCIN 600 mg In 54 ml @ 100 54 / 54 mls/hr IV PREOP DEANDRA Rx#: [id number] Lr 1,000 ml @ 15 mls/hr IV . 500 / 500 Q24H DEANDRA Rx#:[id number] Cyklokapron 1,000 mg In Sodium 220 / 220 Chloride 100 ml @ 660 mls/hr IV TODAY@0600 DEANDRA Rx#:[id number] IV Perioperative 700 / 700 Oral 240 / 240 Output: Urine 400 / 1125 725 / 1125 Estimated Blood Loss 5 / 5 Drain Output 60 / 820 760 / 820 Right Knee Hemovac 60 / 820 760 / 820 Laboratory Results Laboratory Results WBC 12.44 K/uL (4.8-10.8) H 12/02/18 07:15 RBC 4.10 M/uL (4.7-6.1) L 12/02/18 07:15 Hgb 13.7 g/dL (14.0-18.0) L 12/02/18 07:15 Hct 40.2 % (42-52) L 12/02/18 07:15 MCV 98.0 fL (80-100) 12/02/18 07:15 MCH 33.4 pg (25-34) 12/02/18 07:15 MCHC 34.1 g/dL (32-36) 12/02/18 07:15 RDW Std Deviation 51.7 fL (36.4-46.3) H 12/02/18 07:15 RDW Coeff of Murtaza 14.5 % (11.5-14.5) 12/02/18 07:15 Plt Count 175 K/uL (130-400) 12/02/18 07:15 MPV 10.1 fL (7.4-10.4) 12/02/18 07:15 Sodium 141 mmol/L (136-145) 12/01/18 09:21 Potassium 4.2 mmol/L (3.5-5.1) 12/01/18 09:21 Chloride 108 mmol/L (98-107) H 12/01/18 09:21 Carbon Dioxide 24 mmol/L (21-32) 12/01/18 09:21 Anion Gap 9.0 (3-11) 12/01/18 09:21 BUN 8 mg/dl (7-18) 12/01/18 09:21 Creatinine 0.85 mg/dl (0.6-1.4) 12/01/18 09:21 Est Cr Clr Drug Dosing 103.2 ml/min 12/01/18 09:21 Est GFR ( Amer) 109.0 12/01/18 09:21 Est GFR (Non-Af Amer) 94.0 12/01/18 09:21 BUN/Creatinine Ratio 9.1 (10-20) L 12/01/18 09:21 Glucose 90 mg/dl (70-99) 12/01/18 09: Calcium 9.7 mg/dl (8.5-10.1) 12/01/18 09: Blood Type A Positive 12/01/18 09: Antibody Screen NEGATIVE 12/01/18 09:21
[2018-12-02 07:53] LABS: BUN Creatinine Ratio 15.4 (10-20); Creatinine Clr Calc Pharmacy 115.4 ml/min; Est GFR (African American) 114.1; Est GFR (Non-African American) 98.5; Potassium 4.2 mmol/L (3.5-5.1)
--- NOTE | 2018-12-02 08:05 | Anesthesiology Progress Note ---
Date of Service December 02, 2018 Anesthesia Post Procedure Vital Signs Vital Signs: Temp Pulse Pulse Resp BP Pulse Ox 12/02/18 07:12 36.9 C 62 16 170/98 H 97 12/02/18 04:00 170/91 H 12/02/18 03:31 36.9 C 51 L 14 176/90 H 97 12/01/18 22:45 37.0 C 61 14 168/91 H 98 12/01/18 19:25 37.7 C H 63 16 146/82 H 97 12/01/18 16:54 37.1 C 66 16 163/91 H 97 12/01/18 15:52 37 C 70 16 157/81 H 100 12/01/18 15:26 37.2 C 74 16 156/84 H 96 12/01/18 14:19 57 L 16 152/97 H 94 12/01/18 13:50 36.9 C 57 L 16 145/84 H 94 12/01/18 13:35 36.6 C 52 L 14 117/64 94 12/01/18 13:25 61 18 121/64 94 12/01/18 13:15 58 L 17 146/66 H 95 12/01/18 13:06 71 15 153/73 H 96 12/01/18 12:58 36.5 C 58 L 16 131/68 99 12/01/18 09:33 37.2 C 70 18 149/93 H 97 Pain Intensity Right Knee: Pain Intensity: 0 Notes Mental Status: alert / awake / arousable and participated in evaluation Nausea / Vomiting: adequately controlled Pain: adequately controlled Airway Patency, RR, SpO2: stable & adequate BP & HR: stable & adequate Hydration State: stable & adequate Neuraxial Anesthesia: sensory block resolved Anesthetic Complications: Pt Satisfied with anesthetic care
[2018-12-02] MEDS: ACETAMINOPHEN 500 MG TAB PO SCH ×3 (08:11→23:09)
[2018-12-02] MEDS: DOCUSATE SODIUM 100 MG CAP PO SCH ×2 (08:34→20:31)
[2018-12-02] MEDS: MULTIVITAMIN TAB PO SCH (08:34)
[2018-12-02] MEDS: PRAVASTATIN SOD 10 MG TAB PO SCH (08:35)
[2018-12-02] MEDS: ALLOPURINOL 300 MG TAB PO SCH (08:35)
[2018-12-02] MEDS: SERTRALINE HCL 50 MG TABLET PO SCH (08:35)
[2018-12-02] MEDS: ATENOLOL 50 MG TABLET PO SCH ×2 (08:38→20:31)
[2018-12-02] MEDS: FELODIPINE 5 MG TABCR PO SCH (08:38)
[2018-12-02] MEDS: RIVAROXABAN 10 MG TABLET PO SCH (13:38)
[2018-12-02] MEDS: OXYCODONE HCL IR 5 MG TAB (IMMEDIATE RELEASE) PO PRN (19:08)
[2018-12-02] MEDS: SENNA 8.6 MG TAB PO SCH (20:31)
[2018-12-02] MEDS: CeleBREX 200 MG CAP PO SCH (20:31)
[2018-12-03] MEDS: OXYCODONE HCL IR 5 MG TAB (IMMEDIATE RELEASE) PO PRN ×3 (00:32→12:31)
[2018-12-03] MEDS: ACETAMINOPHEN 500 MG TAB PO SCH (07:37)
[2018-12-03] MEDS: PRAVASTATIN SOD 10 MG TAB PO SCH (08:24)
[2018-12-03] MEDS: DOCUSATE SODIUM 100 MG CAP PO SCH (08:24)
[2018-12-03] MEDS: MULTIVITAMIN TAB PO SCH (08:24)
[2018-12-03] MEDS: ALLOPURINOL 300 MG TAB PO SCH (08:25)
[2018-12-03] MEDS: SERTRALINE HCL 50 MG TABLET PO SCH (08:25)
[2018-12-03] MEDS: RIVAROXABAN 10 MG TABLET PO SCH (08:26)
[2018-12-03] MEDS: CeleBREX 200 MG CAP PO SCH (08:27)
[2018-12-03] MEDS: ATENOLOL 50 MG TABLET PO SCH (08:28)
[2018-12-03] MEDS: FELODIPINE 5 MG TABCR PO SCH (08:28)
--- NOTE | 2018-12-03 08:31 | Orthopedic Progress Note ---
Date of Service December 03, 2018 Assessment & Plan (1) Status post total right knee replacement: POD #2 s/p Right TKA pt/ot dvt proph with MITZI/SCD/Xarelto x 1 month plan for d/c home with HHPT when stable foot drop resolved Subjective POD #2 s/p right tka Foot drop resolved denies CP/SOB denies Fever/Chills Physical Exam Physical Exam: Vital Signs Temp 37.0 C 12/03/18 07:33 Pulse 57 L 12/03/18 07:33 Resp 16 12/03/18 07:33 BP 151/89 H 12/03/18 07:33 Pulse Ox 97 12/03/18 07:33 Intake & Output 12/02/18 12/03/18 12/03/18 18:59 06:59 18:59 Intake Total 1010 / 1560 550 / 1560 Output Total 275 / 575 300 / 575 Balance 735 / 985 250 / 985 Intake: Oral 1010 / 1560 550 / 1560 Output: Drain Output 275 / 575 300 / 575 Right Knee Hem ovac 275 / 575 300 / 575 Other: # Unmeasured Voi ds 1 1 Constitutional: WD/WN, vitals as above no acute distress Musculoskeletal: right knee: NVDI, calf SNT, negative brandie sign. DP palpable, able to wiggle toes/ankle movement without difficulty. MARSHA dressing clean dry and intact. expected post-operative bruising noted. Results & Data Vital Signs (Past 12 Hours) Vital Signs Temp Pulse Pulse Resp BP BP Pulse Ox 12/03/18 07:33 37.0 C 57 L 16 151/89 H 97 12/02/18 22:40 36.9 C 71 14 148/88 H 97
--- NOTE | 2018-12-03 08:35 | Discharge Summary ---
Date of Service date of discharge: December 03, 2018 date of admission: 12/01/18 Admission HPI Per Admitting Provider 63 year old male who presents for pre-op evaluation prior to a right total knee replacement at [facility] by dr walton on 12/01/18. he has tried and failed conservative measures including oral NSAIDS, cortisone injection and previous visco with minimal relief. his current pain is 6/10 and worst is 8/10. his pain has now got to the point is affecting his ADLs including standing, walking and using stairs. he admits to pain, decreased range of motion and weakness. describes it as sharp and stabbing. Principal Diagnosis right knee osteoarthritis Discharge Exam Vital Signs Temp 37.0 C 12/03/18 07:33 Pulse 57 L 12/03/18 07:33 Resp 16 12/03/18 07:33 BP 151/89 H 12/03/18 07:33 Pulse Ox 97 12/03/18 07:33 Intake & Output 12/02/18 12/03/18 12/03/18 18:59 06:59 18:59 Intake Total 1010 / 1560 550 / 1560 Output Total 275 / 575 300 / 575 Balance 735 / 985 250 / 985 Intake: Oral 1010 / 1560 550 / 1560 Output: Drain Output 275 / 575 300 / 575 Right Knee Hemovac 275 / 575 300 / 575 Other: # Unmeasured Voids 1 1 Constitutional WD/WN, vitals as above no acute distress Musculoskeletal right knee: NVDI, calf SNT, negative brandie sign. DP palpable, able to wiggle toes/ankle movement without difficulty. MARSHA dressing clean dry and intact. expected post-operative bruising noted. Discharge Data Allergies Allergy/AdvReac Type Severity Reaction Status Date / Time mivacurium Allergy Severe TONGUE Verified 12/01/18 09:28 SWELLING thiopental Allergy Severe anaphylaxis Verified 12/01/18 09:28 amoxicillin Allergy Unknown Swelling Verified 12/01/18 09:28 of Lip/Tongue/Throat Penicillins Allergy Unknown hives Verified 12/01/18 09:28 Consultations 12/01/18 13:41 Consult Case Management - Discharge Planning Routine Procedures Performed Operation Date: 12/01/18 11:50 Actual Procedures p Right Total Knee Arthroplasty(Right) - Karel Walton DO Ordered Studies 12/01/18 05:00 US - OR guided needle placemen Routine Hospital Course (1) Status post total right knee replacement: POD #2 s/p Right TKA pt/ot dvt proph with MITZI/SCD/Xarelto x 1 month plan for d/c home with HHPT when stable foot drop resolved. Patient was a same day admission after undergoing a successful right TKA. he tolerated the procedure well. Post-operatively, his activity was progressed and well tolerated. he did have a positive foot drop x 24 hours after his surgery but since has resolved. Please refer to daily progress notes and PT notes for complete details. After exam on 12/03/18, patient felt to be stable for discharge home. Patient will f/u in the office in 2 weeks for further evaluation including x-rays and incision check, sooner if having any issues or concerns. Below are pertinent labs/studies during their hospital stay: Laboratory Results WBC 12.44 K/uL (4.8-10.8) H 12/02/18 07:15 RBC 4.10 M/uL (4.7-6.1) L 12/02/18 07:15 Hgb 13.7 g/dL (14.0-18.0) L 12/02/18 07:15 Hct 40.2 % (42-52) L 12/02/18 07:15 MCV 98.0 fL (80-100) 12/02/18 07:15 MCH 33.4 pg (25-34) 12/02/18 07:15 MCHC 34.1 g/dL (32-36) 12/02/18 07:15 RDW Std Deviation 51.7 fL (36.4-46.3) H 12/02/18 07:15 RDW Coeff of Murtaza 14.5 % (11.5-14.5) 12/02/18 07:15 Plt Count 175 K/uL (130-400) 12/02/18 07:15 MPV 10.1 fL (7.4-10.4) 12/02/18 07:15 Sodium 142 mmol/L (136-145) 12/02/18 07:15 Potassium 4.2 mmol/L (3.5-5.1) 12/02/18 07:15 Chloride 110 mmol/L (98-107) H 12/02/18 07:15 Carbon Dioxide 26 mmol/L (21-32) 12/02/18 07:15 Anion Gap 5.0 (3-11) 12/02/18 07:15 BUN 12 mg/dl (7-18) 12/02/18 07:15 Creatinine 0.76 mg/dl (0.6-1.4) 12/02/18 07:15 Est Cr Clr Drug Dosing 115.4 ml/min 12/02/18 07:15 Est GFR ( Amer) 114.1 12/02/18 07:15 Est GFR (Non-Af Amer) 98.5 12/02/18 07:15 BUN/Creatinine Ratio 15.4 (10-20) 12/02/18 07:15 Glucose 92 mg/dl (70-99) 12/02/18 07:15 Calcium 9.0 mg/dl (8.5-10.1) 12/02/18 07:15 Blood Type A Positive 12/01/18 09:21 Antibody Screen NEGATIVE 12/01/18 09:21 Total Time Total Time Spent Total Time Spent (In Minutes): 20 Total Time Includes: Examination of the Patient, Discharge Planning and Medication Reconciliation Discharge Plan Discharge Items Patient Disposition: Home - Home Health Services Reason For Visit: RIGHT KNEE OSTEOARTHRITIS Discharge Diagnosis: right total knee replacement Condition: Good Discharge Goals: Decrease discomfort, Improve function and Increase independence Activity: Per 'Additional Instructions' section Lifting: Wait until after follow-up appointment Sexual Activity: Wait until after follow-up appointment Exercise/Sports: Wait until after follow-up appointment Driving/Machine Use Comment: no driving until cleared by your surgeon Weightbearing: Right weightbearing Weightbearing Comment: WBAT with walker Non-emergency contact: Primary Care Provider and Surgeon Call non-emergency contact if: you have any medication questions, your te mperature is above 101, your wound has increased redness, your wound has increased drainage and your wound pain has increased Follow-up/Referrals: Clovis Deleon MD [Primary Care Provider] - Diet: Regular Addtl Provider Instructions: ACTIVITY RECOMMENDATIONS: SELF CARE INSTRUCTIONS AFTER TOTAL KNEE REPLACEMENT HOLD ON TAKING THE CELEBREX UNTIL AFTER YOU FINISH THE XARELTO, ONCE YOU ARE DONE TAKING THE XARELTO YOU CAN BEGIN THE CELEBREX X 30 DAYS A. You may need to continue a physical therapy program after discharge from the hospital. There are several options available to you. Your doctor will assist you in selecting the best one for you. 1. An out-patient facility 2 to 3 times a week for therapy or home therapy. 2. Continue working on all exercises taught to you in the hospital. Your goals should be to increase bending of your knee to 90 degrees and beyond and to fully straighten your knee. B. You may progress at your own pace from walking with a walker or crutches to a cane; then to no assistive devices. C. Make walking a part of your daily routine. Be up as much as comfortable with rest periods throughout the day. Rest with leg elevation is very important. Use the ice wrap frequently for the first 3-4 weeks. D. There are no restrictions on activities. You may ride in a car, shop, participate in track coach and all social activities. E. Wear the long elastic stockings (MITZI hose) 20 hours a day for 2 weeks after surgery. They can be removed several times a day for laundering and for a bath. F. You may shower, no tub baths until cleared by your doctor. SPECIAL CARE INSTRUCTIONS: VERY IMPORTANT TO READ AND REVIEW A. There are a few signs you need to watch for after you are home. Call [facility] if you notice any of the followin. Increased severe knee pain. Some pain is expected especially when you exercise. 2. Increased swelling in your leg or knee; pain or swelling of the calf muscle in either lower leg. 3. Any fluid drainage from the incision. 4. Shortness of breath or chest pain. B. Please call [facility] at if you have any concerns or questions about your operation or recovery. The doctor or his nurse will return your call promptly. C. You must take antibiotics before dental work, bladder, bowel or other surgery. Your doctor will provide you with a permanent care to carry describing this precaution. IMPORTANT: * REMEMBER TO TAKE ASPIRIN, 81 MG, TWICE DAILY FOR 4 WEEKS UNLESS OTHERWISE DIRECTED. THIS IS YOUR BLOOD THINNER. * HIGH RISK PATIENTS MAY BE PRESCRIBED A STRONGER BLOOD THINNER. THIS WILL BE PROVIDED AT DISCHARGE. * CALL IF INCREASED PAIN, REDNESS, DRAINAGE OR FEVER GREATER THAT 101. * WEAR MITZI HOSE 20 HOURS PER DAY FOR 2 WEEKS. * MARSHA Dressing- This is a large suction dressing covering your incision. This will help pull any excess drainage from the wound and allow your incision to heal properly. You may shower with this if you can keep the unit outside of the shower. If any bleeding or leakage is noted please call your doctor's office. This will remain on your incision for 7 days and then should be removed. This can be done yourself or by the home nursing staff if applicable. The entire unit is disposable once removed. Once removed, keep incision clean and dry. If redness or drainage is noted, please call your surgeon. DERMABOND Prineo- This is a mesh tape dressing that is covered with glue. It should remain in place until the incision is properly healed, usually 10-14 days. This dressing is designed to naturally slough off. You may trim the excess mesh tape as it peels off. Incision may be briefly wet in a shower. Dry immediately by blotting with a clean, dry towel. Do not bath or swim until instructed by your doctor. Do not scratch, rub, or pick at the dressing. Do not apply any topical ointments or lotions until dressing is completely removed and/or instructed by your doctor. There may be a small piece of suture material at one end of your incision. Do not pull or trim this. If it is bothersome or catching on clothing, you may cover it with a band-aid. FOLLOW UP VISIT: If appointment is not already scheduled: Please call [facility] to make a follow-up appointment for 2 weeks after your surgery at . Prescriptions: New acetaminophen [Tylenol Extra Strength] 500 mg Tablet 1,000 mg PO Q8H 14 Days Qty: 84 RF: 0 oxycodone 5 mg Tablet 5 - 10 mg PO Q4H PRN (Reason: pain) Qty: 30 RF: 0 Xarelto 10 mg Tablet 10 mg PO DAILY 30 Days Qty: 30 RF: 0 docusate sodium 100 mg Capsule 100 mg PO BID 10 Days Qty: 20 RF: 0 clindamycin HCl 300 mg capsule 300 mg PO TID 10 Days Qty: 30 RF: 0 Continued felodipine 10 mg Tablet Extended Release 24 Hr 10 mg PO QAM RF: 0 multivitamin Tablet 1 tab PO QAM RF: 0 potassium 99 mg Tablet 99 mg PO QAM RF: 0 pravastatin 10 mg Tablet 10 mg PO DAILY RF: 0 sertraline 25 mg Tablet 25 mg PO DAILY RF: 0 allopurinol 300 mg Tablet 300 mg PO QAM RF: 0 atenolol 50 mg Tablet 50 mg PO BID RF: 0 Discontinued celecoxib [Celebrex] 200 mg Capsule 200 mg PO QAM RF: 0 diphenhydramine-acetaminophen [Tylenol PM Extra Strength] 25-500 mg Tablet 1 tab PO HS RF: 0 Stand-Alone Forms: [facility] Discharge Orders: Discharge Order (Routine); Ordered 12/03/18 Ordered By: Geovani Turk Admission Data Admit Date/Time: 12/01/18 14:14 Attending Provider: Karel Walton Admit Provider: Karel Walton Primary Care Provider: Clovis Deleon Service: Surgical Services Other Pending Studies at Discharge: No
--- NOTE | 2018-12-04 10:25 | Coding Query ---
CODING QUERY To promote full compliance with coding requirements relating to patient care, provider participation is requested in all cases of gis coordinator uncertainty. Please assist us with the question(s) below: Coding Question(s): Patient had TKA with foot drop postop. Please check below the phrase that describes the foot drop. Thanks for your help! BIRGIT Waterman [facility] Physician's Response(s): The foot drop is an expected occurrence post TKA ___x___ The foot drop is a complication of the intraarticular injection Cannot clinically correlate if the foot drop is an expected occurrence or a complication of the injection Other/ Please document: Principal Diagnosis: "that condition established after study, to be chiefly responsible for occasioning the admission of the patient to the hospital for care." Co-Existing Principal Diagnosis: "when two or more diagnoses equally meet the criteria for principal diagnosis as determined by the circumstances of admission, diagnostic work up, and/or therapy provided, and the Alphabetic Index, Tabular List, or another coding guideline does not provide sequencing direction, any one of the diagnoses may be sequenced first." "When the physician has documented what appears to be a current diagnosis in the body of the record, but has not included the diagnosis in the final diagnostic statement, the physician should be asked whether the diagnosis should be added." (Source Coding [facility] 2 QTR90. p3-4) DEMETRICE
== END 2018-12-03 13:30 | disposition home health service (06) | DRG 470 ==
LOC: ASU 08:56 → 3E 14:14

== ENCOUNTER 2019-01-26 05:28 | Inpatient (IN) ==
--- NOTE | 2019-01-14 11:41 | History & Physical Report ---
Date of Service January 14, 2019 Date of Surgery: 01-26-19 Assessment & Plan (1) Osteoarthritis of left knee: Further care discussed with patient and at this point in time has failed conservative measures and would like to proceed with a Left total knee replacement. Plan on discharge will be home with home health physical therapy. DVT prophalaxis with TEDs, SCDs and will also place on aspirin 81 mg p.o. b.i.d. for a month postop. Patient will have follow up appointment in our office two we eks post op for staple/suture removal and re-evaluation. Patient otherwise has no other questions or concerns. History of Present Illness Chief Complaint: left knee pain Primary Care Provider: Clovis Deleon MD Jacoby Ceballos is a 63 year old male that presents for pre-op evaluation prior to a left total knee replacement at [facility]. He complains of pain, crepitus, decreased rom and stiffness on the left side. He states that the symptoms have been chronic non-traumatic. The symptoms occur constantly with intermittent worsening. Currently the patient states that the symptoms are moderate-severe and describes it as aching and sharp. The symptoms are aggravated by daily activities, walking and weight bearing. Jacoby states that the symptoms are relieved by no specific activity. In addition to left knee pain the patient is also experiencing crepitus, decreased mobility, joint pain, instability, loss of motion, pain after activity and stiffness. Prior NSAIDs include Celebrex and Ibuprofen. Pt. had some varicosities and was placed on Xarelto for this in the past, however pt and report he has now been discontinued. He also had a Right TKA performed by Dr Martins in November of this year and has recovered well. Allergies Allergy/AdvReac Type Severity Reaction Status Date / Time azithromycin Allergy Severe tongue Verified 12/30/18 09:05 swelling thiopental Allergy Severe anaphylaxis Verified 12/01/18 09:28 amoxicillin Allergy Unknown Swelling Verified 12/01/18 09:28 of Lip/Tongue/Throat Penicillins Allergy Unknown hives Verified 12/01/18 09:28 Home Medications Home Medications Medication Instructions Recorded Confirmed Type allopurinol 300 mg PO QAM 09/16/18 12/01/18 History atenolol 50 mg PO BID 09/16/18 12/01/18 History multivitamin 1 tab PO QAM 09/16/18 12/01/18 History potassium 99 mg PO QAM 09/16/18 12/01/18 History pravastatin 10 mg PO DAILY 09/16/18 12/01/18 History sertraline 25 mg PO DAILY 09/16/18 12/01/18 History felodipine 10 mg PO QAM 11/20/18 12/01/18 History oxycodone 5 - 10 mg PO Q4H PRN #30 tab 12/02/18 Rx Past Med/Surg History Social History Preferred Language: Micronesian Communication Ability: Effective Banquet Cook Required: No Beliefs That Will Affect Care: None marital status: Current Living Situation: Spouse Feels Safe at Home: Yes Smoking Status: Current every day smoker Tobacco Type: cigarettes Cigarettes Per Day: 1 PPD Second Hand Exposure: Yes Hx Alcohol Use: Yes Alcohol type: beer Hx Substance Use: Yes substance use type: marijuana (daily) Review of Systems Review of Systems: All systems reviewed & are unremarkable except as noted in HPI & below Constitutional: no fever, no chills and no sweats Respiratory: no cough and no dyspnea Cardiovascular: no chest pain, no dyspnea and no orthopnea Gastrointestinal: no abdominal pain, no nausea and no vomiting Musculoskeletal: as per Subjective / HPI Physical Exam Physical Exam: Ht: 70in Wt: 210lb BP: 122/74 Pulse: 68 Constitutional: WD/WN, vitals as above no acute distress Respiratory: normal respiratory effort, lungs clear to auscultation no respiratory distress, no labored breathing and does not use accessory muscles Cardiovascular: RRR, no murmur, no edema Gastrointestinal (Abdomen): normal bowel sounds, soft, nontender, no hepatosplenomegaly Musculoskeletal: Left Knee Physical Exam He ambulates with a limp, there is no erythema, warmth, ecchymosis or atrophy noted, +1 effusion, greatest tenderness over the medial joint line but diffuse. mild crepitation with motion, donna's negative, posterior drawer negative. positive mcmurrays noted, negative anterior drawer, knee stable with valgus/varus stress. no extensor lag. pain with active range of motion, AROM 0/3/115, Passive ROM 0/3/115. No pain with active/passive ROM of ankle. Lower Extremity Strength normal. Lower Extremity Neuro-vascular is normal Results & Data Diagnostic Findings left knee xray from 12/15/18 confirms advanced degenerative changes to the left knee, greatest medial compartments and patellofemoral joint, showing joint space narrowing, osteophyte formation and subchondral sclerosis. no acute bony pathology noted.
--- NOTE | 2019-01-22 10:21 | Anesthesiology Consultation ---
Date of Service January 22, 2019 on arrival it was found that his right knee has an open draining wound (had it done 2 months ago) so the procedure is now i&d right knee with possible spacer exchange... Assessment & Plan (1) Encounter for pre-operative examination: - PCP: 01/15/19: "cleared for surgery at this time." - Mild hyponatremia on 01/15/19 preop labs (Na 130): at anesthesiologist discretion AM DOS if repeat needed. - ETOH hx: 3 or more drinks per day per RN phone interview* Chart Review Chart Review: Acceptable Risk for Surgery and Patient NOT seen in Pre Admission Testing History Surgery Operation Date: 01/26/19 08:35 Proposed Procedures p Left Total Knee Arthroplasty - Karel Martins DO Height/Weight Height: 5 ft 10 in Weight: 93.44 kg Allergies Allergy/AdvReac Type Severity Reaction Status Date / Time azithromycin Allergy Severe tongue Verified 01/26/19 06:09 swelling thiopental Allergy Severe anaphylaxis Verified 01/26/19 06:09 amoxicillin Allergy Unknown Swelling Verified 01/26/19 06:09 of Lip/Tongue/Throat Penicillins Allergy Unknown hives Verified 01/26/19 06:09 INTERNAL SUTURES Allergy Redness of Uncoded 01/26/19 06:09 Skin Medications Home Medications Medication Instructions Recorded Confirmed Last Taken allopurinol 300 mg PO QAM 09/16/18 01/26/19 01/25/19 09:00 multivitamin 1 tab PO QAM 09/16/18 01/26/19 01/25/19 09:00 potassium 99 mg PO QAM 09/16/18 01/26/19 01/24/19 09:00 pravastatin 10 mg PO DAILY 09/16/18 01/26/19 01/25/19 09:00 sertraline 25 mg PO DAILY 09/16/18 01/26/19 01/26/19 05:00 felodipine 10 mg PO QAM 11/20/18 01/26/19 01/26/19 05:00 oxycodone 5 - 10 mg PO Q4H PRN #30 tab 12/02/18 01/26/19 Unknown aspirin 81 mg PO QAM 01/19/19 01/26/19 01/24/19 09:00 Active Medications Generic Name Dose Route Start Last Admin Trade Name Freq PRN Reason Stop Dose Admin Lactated Ringer's 1,000 mls @ 15 mls/hr 01/26/19 06:00 01/26/19 07:27 Lr IV 01/26/19 18:00 15 mls/hr .Q24H DEANDRA Administration NPO Date Last Intake of Fluids: 01/25/19 Date Last Intake of Solids: 01/25/19 Past Medical History Medical History BPH (benign prostatic hyperplasia) Carotid stenosis 50-69% B/L, being medically managed by PCP Depression ETOH abuse Gout Hard of hearing Hyperlipidemia Hypertension Osteoarthritis Exercise / Class Metabolic Activity II 4-5 Yardwork/Stairs/Walk up hill Past Family History Family History Father Family history of diabetes mellitus Past Surgical History Surgical History History of right knee joint replacement 12/01/2018 [facility] History of hernia repair INGUINAL X 3 History of surgery RT HAND History of tooth extraction History of total hip arthroplasty LT Past Anesthesia History No Hx of Anesthesia Complications History of PONV No Hx of PONV and No Hx of Motion Sickness Social History Smoking Status: Current every day smoker tobacco type: cigarettes Smoking cigarettes per day: 1 PPD Do You Dip or Chew Tobacco: Yes Hx Alcohol Use: Yes Alcohol type: beer alcohol intake frequency: 3 or more drinks per day Hx Substance Use: Yes substance use type: marijuana Physical Exam Vital Signs Last Vital Signs Temp 37.3 C 01/26/19 06:08 Pulse 99 H 01/26/19 06:08 Resp 16 01/26/19 06:08 BP 132/95 01/26/19 06:08 Pulse Ox 96 01/26/19 06:08 Testing Laboratory Results 01/19/19 WBC 8.2 H/H 13.7/40.8 PLATELETS 247 SODIUM 130 POTASSIUM 4.2 CHLORIDE 110 CO2 26 BUN 12 CREATININE 0.76 GLUCOSE 92 PT 11.7 INR 1.0 UA negative bacteria T&S (Punxy) A+Ab- Electrocardiogram Date: 09/15/18 + NSR @ (69) Chest X-Ray Date: 09/18/18 Findings: + NAD Other Testing Carotid Doppler: 09/18/18: No significant interval change since 10/24/2017. Stable moderate 50-69% stenosis of the bilateral carotid bulb/proximal internal carotid arteries.
[2019-01-26] MEDS ORDERED: CLINDAMYCIN 600 MG/54 ML BAG IV SCH (06:00)
[2019-01-26] MEDS ORDERED: TRANEXAMIC ACID 1,000 MG **IV Pre-op IV SCH (06:00)
[2019-01-26] MEDS ORDERED: CeleBREX 200 MG CAP PO SCH (06:00)
[2019-01-26] MEDS ORDERED: FAMOTIDINE 20 MG TAB PO SCH (06:00)
[2019-01-26] MEDS ORDERED: METOCLOPRAMIDE HCL 10 MG TABLET PO SCH (06:00)
[2019-01-26] MEDS ORDERED: dexAMETHasone 4 MG TAB PO SCH (06:00)
[2019-01-26] MEDS ORDERED: GABAPENTIN 600 MG DOSE PO SCH (06:00)
[2019-01-26] MEDS ORDERED: LR 500ML BOLUS, THEN 15ML/HR IV SCH (06:00)
[2019-01-26] MEDS ORDERED: ACETAMINOPHEN 500 MG TAB PO SCH (06:00)
[2019-01-26] MEDS ORDERED: ROPIVACAINE 0.5% HCL/PF 150 MG, BUPIVACAINE 0.5% MPF 30 ML, EPINEPHrine 30MG/30ML (OR U... INSTIL SCH (06:00)
[2019-01-26] MEDS ORDERED: TRANEXAMIC ACID 1,000 MG **IV Intra-op IV SCH (06:30)
[2019-01-26] MEDS ORDERED: BUPIVACAINE 0.5 % 5 MG/1 ML PF 10ML VIAL ONE (06:37)
[2019-01-26] MEDS ORDERED: BUPIVACAINE 0.25% 30 ML VIAL ONE (06:37)
--- NOTE | 2019-01-26 07:12 | History & Physical Bridge Note ---
Date of Service January 26, 2019 History & Physical Bridge Note I have examined the patient, reviewed the History & Physical and in the interval since the performance of the History & Physical I have noted the following changes of clinical significance: Patient was scheduled for left total knee arthroplasty although upon arrival here to the hospital relates his right knee wound had opened up last evening he has a approximately a 6 cm dehiscence involving the midportion of the wound is approximately 3 cm wide with seropurulent fluid upon palpation there is concern as to whether this involves the medial retinacular repair I told the patient that the procedure for today will change left total knee arthroplasty will be canceled and will be an incision and drainage washout of right knee wound possible poly-change right knee pending findings at time of surgery patient understands this and elects to proceed forward with right knee I&D possible poly-change.
[2019-01-26] MEDS ORDERED: BACITRACIN INJ 50,000 UNIT VIAL ONE ×2 (08:21→09:33)
[2019-01-26] MEDS ORDERED: ORTHO JOINT ANESTHETIC ONE (08:21)
[2019-01-26] MEDS ORDERED: PROPOFOL IV EMULSION 10 MG/ML 20 ML VIAL IV ONE (08:21)
[2019-01-26] MEDS ORDERED: LIDOCAINE HCL 2% 2 ML VIAL/AMP(20MG/ML) INFIL ONE (08:21)
[2019-01-26] MEDS ORDERED: fentaNYL citrate 100 MCG/2 ML VIAL ONE (08:22)
[2019-01-26] MEDS ORDERED: MIDAZOLAM HCL 1 MG/ML 2ML VIAL ONE ×2 (08:22)
[2019-01-26] MEDS ORDERED: ONDANSETRON INJ 2 MG/ML 2 ML VIAL IV PRN ×2 (08:51→11:53)
[2019-01-26] MEDS ORDERED: HYDROmorphone INJ 1 MG/ML SYRINGE IV PRN (08:51)
[2019-01-26] MEDS ORDERED: ATROPINE SULFATE 0.1 MG/ML 10ML SYR IV PRN (08:51)
[2019-01-26] MEDS ORDERED: PHENYLEPHRINE 100MCG/ML 5ML SYR IV PRN (08:51)
[2019-01-26] MEDS ORDERED: ePHEDrine sulfate 50 MG/ML AMP IV PRN (08:51)
[2019-01-26] MEDS ORDERED: KETOROLAC TROMETHAMINE 15 MG/ML VIAL IV PRN (08:51)
--- NOTE | 2019-01-26 09:59 | Operative Report ---
Post Operative Report Pre & Post Diagnosis Wound dehiscence right knee Operation Date: 01/26/19 08:35 <No data on this case meets the specified criteria> Post op wound dehiscense with disruption of medial retinacular repair Procedure Incision and drainage with debridement lavage right knee wound open arthrotomy with poly-change to a size 13 x 7 there was a 2 cm disruption in the medial retinacular repair underneath the superficial 6 cm wound dehiscence Operation Date: 01/26/19 08:35 <No data on this case meets the specified criteria> Surgeon Karel Martins DO Technician [employer] Raúl MARRERO Estimated Blood Loss 5 Findings Consistent with Post-Op Diagnosis Patient initially presented for left total knee arthroplasty this a.m. related time of evaluation this morning that he had had a wound dehiscence of his right knee last p.m. he denies falling although his incision is 6 cm open with concern of communication through retinaculum which later very was verified during the time of surgery thus the procedure was changed from canceling left total knee arthroplasty to incision and drainage with poly-change right total knee arthroplasty the above intraoperative findings were noted Specimens Polyethylene Drains Medium bore Hemovac Complications none Disposition Accompanied Patient To Recovery: No Disposition: Recovery Room Indications Patient presents with the above history having dehisced his right anterior knee wound last did not call the office did not go to the emergency room came today for left total knee arthroplasty with a right dehisced wound of his right knee the above findings were noted there was communication of the dehisced wound through a 2 cm rent in his medial retinacular repair thus patient required washout poly-change Description of Procedure After proper prepping draping the right lower extremity the 6 cm area of wound dehiscence was cultures were taken the was clearly communicating after initial surgical dissection with the deep wound and exposure of metal on poly- subsequently of the medial parapatellar retinacular incision was opened again the wound having been irrigated with 9 L of bacitracin impregnated sterile saline solution the poly-had been removed poly-was trialed and upsized to a size 13 x 7 eventually initially though the wound and been thoroughly irrigated all the lavage was performed synovectomy was performed utilizing a versa jet than the dressings in the drapes were changed gloves were changed new polyethylene was brought in the field and implanted after thorough irrigation debridement lavage with versa jet and pulsatile lavage system the medial parapatellar retinaculum was closed #1 Vicryl subcu was closed with 2-0 Vicryl skin was closed with a combination skin clips and 4-0 nylon a sterile compressive dressings placed patient was taken to recovery room in stable condition please note medium Hemovac in place a deep wound. Raúl MARRERO was necessary for prepping draping retraction wound closure of the fascia subcu skin was necessary for the case I attest to the content of the Intraoperative Record and any orders documented therein. Any exceptions are noted below.
--- NOTE | 2019-01-26 11:08 | XRay Report ---
XR knee RT 2V routine CLINICAL HISTORY: Surgical Post Op COMPARISON: 12/01/2018 DISCUSSION: Anatomic alignment posttotal right knee arthroplasty. Expected soft tissue postoperative change IMPRESSION: Good position post total right knee arthroplasty. The above report was generated using voice recognition software. It may contain grammatical, syntax or spelling errors. Electronically signed by: Geovani Bernabe M.D. 01/26/2019 11:06 AM
[2019-01-26] MEDS ORDERED: NALOXONE HCL 0.4 MG/1 ML VIAL/CARP IV PRN (11:53)
[2019-01-26] MEDS ORDERED: BISACODYL 10 MG SUPP PR PRN (11:53)
[2019-01-26] MEDS ORDERED: MAGNESIUM HYDROXIDE SUSP 30 ML UDC PO PRN (11:53)
[2019-01-26] MEDS ORDERED: METOCLOPRAMIDE HCL INJ 5 MG/ML 2 ML VIAL IV PRN (11:53)
[2019-01-26] MEDS: SODIUM CHLORIDE 0.9% 1000ML 1,000 ML IV SCH ×2 (12:25→23:12)
--- NOTE | 2019-01-26 12:48 | Anesthesiology Progress Note ---
Date of Service January 26, 2019 Anesthesia Post Procedure Vital Signs Vital Signs: Temp Pulse Pulse Pulse Resp BP Pulse Ox 01/26/19 12:25 37.2 C 67 18 133/78 96 01/26/19 11:25 37.4 C 72 16 113/70 94 01/26/19 11:15 37.2 C 68 18 124/72 96 01/26/19 11:05 72 18 133/77 96 01/26/19 10:55 71 18 119/79 97 01/26/19 10:45 72 18 124/75 100 01/26/19 10:39 37.7 C H 79 18 118/67 100 01/26/19 06:08 37.3 C 99 H 16 132/95 96 Pain Intensity Right Knee: Pain Intensity: 0 Transfer of Care Handoff Completed per policy Notes Mental Status: alert / awake / arousable Patient Amnestic to Procedure: Yes Nausea / Vomiting: adequately controlled Pain: adequately controlled Airway Patency, RR, SpO2: stable & adequate BP & HR: stable & adequate Hydration State: stable & adequate Anesthetic Complications: no major complications apparent
[2019-01-26] MEDS ORDERED: VANCOMYCIN CONSULT ACTIVE PRN (13:29)
[2019-01-26] MEDS ORDERED: VANCOMYCIN HCL 1,000 MG in SODIUM CHLORIDE 0.9% 250 ML IV SCH (13:30)
[2019-01-26] MEDS: ACETAMINOPHEN 500 MG TAB PO SCH ×2 (13:44→21:41)
[2019-01-26] MEDS: OXYCODONE HCL IR 5 MG TAB (IMMEDIATE RELEASE) PO PRN ×2 (13:47→20:30)
[2019-01-26] MEDS ORDERED: VANCOMYCIN HCL 2,250 MG in SODIUM CHLORIDE 0.9% 500 ML IV ONE (15:00)
--- NOTE | 2019-01-26 15:05 | Pharmacy Report ---
Pharmacy Abx Initial Consult - Date of Service January 26, 2019 - Pharmacy Dosing Scope Date of Consult: 01/26/19 Consultation requested by: Raúl Urbina PA-C Pharmacy is consulted to initiate Vancomycin IV dosing therapy, order appropriate labs and adjust drug dose/frequency. - Subjective The patient is a 63 year old M admitted on 01/26/19 10:27. - Objective Height: 5 ft 10 in Weight: 86.891 kg Vital Signs (Past 12hrs): Vital Signs Temp Pulse Pulse Pulse Resp BP Pulse Ox 01/26/19 14:36 37.2 C 73 16 131/79 95 01/26/19 13:26 37.2 C 79 18 115/75 99 01/26/19 12:25 37.2 C 67 18 133/78 96 01/26/19 11:25 37.4 C 72 16 113/70 94 01/26/19 11:15 37.2 C 68 18 124/72 96 01/26/19 11:05 72 18 133/77 96 01/26/19 10:55 71 18 119/79 97 01/26/19 10:45 72 18 124/75 100 01/26/19 10:39 37.7 C H 79 18 118/67 100 01/26/19 06:08 37.3 C 99 H 16 132/95 96 Micro Results: 01/26/19 09:31 Gram Stain - Final Knee,Right Aerobic and Anaerobic Culture - Pending - Risk Factors for Resistance None - Assessment & Plan Assessment 63 year old M with infection of R TKA, present for L TKA however unable to be done secondary to dehiscence of R TKA wound, for I&D today No pertinent PMH to contribute aside from R TKA on 12/01/18 Serum Creatinine on 01/19/19 was 0.7 mg/dL; CrCl was 114 mL/min (based on IBW) Plan IV Vancomycin for treatment of Prosthetic Bone & Joint Infection Vancomycin IV * Estimated PK Parameters: Vd 0.65 L/kg, Amari 0.099 hr-1, t1/2 7 hrs * Loading dose: 2250 mg (25.9 mg/kg) * Maintenance dose: 1250 mg IV (14.4 mg/kg) every 8 hours * Goal trough level for Prosthetic Bone & Joint Infection: 15 to 20 mcg/mL * Trough level ordered for 01/27/19 prior to the 3rd dose; opting to dose every 8 hours to get patient therapeutic then will most likely need to decrease dosing Pharmacy will continue to follow and will adjust dose/frequency as necessary. Thank you.
--- NOTE | 2019-01-26 15:15 | Infectious Disease Consult ---
Date of Consultation January 26, 2019 Assessment & Plan (1) Infection of prosthetic right knee joint: agree with vanco pending additional culture results. will follow. History of Present Illness Attending Physician: Karel Martins DO pt admitted due to right knee infection, OR today, intraop culture pending but gram stain with moderate wbc and rare gpc. was initially supposed to have left tkr due to OA but was found to have open wound at previous right incision and left knee surgery was postponed. tmax 37.7. placed on vanco, tolerating well. outpt labs on 01/19 wbc 8.2, creat 0.7 ambulating in room, min pain, drain in place. afebrile currently, denies cp,sob, cough, jernigan. no abd pain ,no n/v/d. no gu symptoms. all remaining ros reviewed and are negative. Allergies Allergy/AdvReac Type Severity Reaction Status Date / Time azithromycin Allergy Severe tongue Verified 01/26/19 06:09 swelling thiopental Allergy Severe anaphylaxis Verified 01/26/19 06:09 amoxicillin Allergy Unknown Swelling Verified 01/26/19 06:09 of Lip/Tongue/Throat Penicillins Allergy Unknown hives Verified 01/26/19 06:09 INTERNAL SUTURES Allergy Redness of Uncoded 01/26/19 06:09 Skin Home Medications Home Medications Medication Instructions Recorded Confirmed Type allopurinol 300 mg PO QAM 09/16/18 01/26/19 History multivitamin 1 tab PO QAM 09/16/18 01/26/19 History potassium 99 mg PO QAM 09/16/18 01/26/19 History pravastatin 10 mg PO DAILY 09/16/18 01/26/19 History sertraline 25 mg PO DAILY 09/16/18 01/26/19 History felodipine 10 mg PO QAM 11/20/18 01/26/19 History oxycodone 5 - 10 mg PO Q4H PRN #30 tab 12/02/18 01/26/19 Rx aspirin 81 mg PO QAM 01/19/19 01/26/19 History Patient History Medical History BPH (benign prostatic hyperplasia) Carotid stenosis 50-69% B/L, being medically managed by PCP Depression ETOH abuse Gout Hard of hearing Hyperlipidemia Hypertension Osteoarthritis Surgical History History of right knee joint replacement 12/01/2018 [facility] History of hernia repair INGUINAL X 3 History of surgery RT HAND History of tooth extraction History of total hip arthroplasty LT Family History Father Family history of diabetes mellitus Social History Preferred Language: Chinese Communication Ability: Effective Waste Collection Driver Required: No Beliefs That Will Affect Care: None marital status: Current Living Situation: Spouse Other Information That Helps Us Care for You: No Feels Safe at Home: Yes Safety Concerns: Feels Safe At This Time Smoking Status: Current every day smoker Tobacco Type: cigarettes ; Cigarettes Per Day: 1 PPD ; Do You Dip or Chew Tobacco: Yes ; Second Hand Exposure: Yes ; Tobacco Cessation Education Requested by Patient: No Hx Alcohol Use: Yes Alcohol type: beer Hx Substance Use: Yes substance use type: marijuana Review of Systems Review of Systems: All systems reviewed & are unremarkable except as noted in HPI & below Physical Exam Constitutional: WD/WN, vitals as above Eyes: PERRL, conjunctivae normal, anicteric sclerae ENMT: external ear and nose normal, oropharynx normal Neck: normal visual inspection Respiratory: normal respiratory effort, lungs clear to auscultation Cardiovascular: RRR, no murmur, no edema Gastrointestinal (Abdomen): normal bowel sounds, soft, nontender, no hepatosplenomegaly Musculoskeletal: no cyanosis or clubbing, extremities motor strength 5/5 Skin: no rashes, warm and dry OR dressing intact, drain in place Psychiatric: A+Ox3, euthymic affect Results & Data Vital Signs (Past 12 Hours) Vital Signs Temp Pulse Pulse Pulse Resp BP Pulse Ox 01/26/19 14:36 37.2 C 73 16 131/79 95 01/26/19 13:26 37.2 C 79 18 115/75 99 01/26/19 12:25 37.2 C 67 18 133/78 96 01/26/19 11:25 37.4 C 72 16 113/70 94 01/26/19 11:15 37.2 C 68 18 124/72 96 01/26/19 11:05 72 18 133/77 96 08/13/19 10:55 71 18 119/79 97 01/26/19 10:45 72 18 124/75 100 01/26/19 10:39 37.7 C H 79 18 118/67 100 01/26/19 06:08 37.3 C 99 H 16 132/95 96 Laboratory Results Microbiology 01/26/19 09:31 Knee,Right Gram Stain - Final PG Care Time/CCT Total # of Minutes Spent Total Time Spent with Patient: Total time spent is greater than 50% in coordination of care (as documented) at patient's floor/unit and/or counseling patient:
[2019-01-26] MEDS: HYDROmorphone INJ 1 MG/ML SYRINGE IV PRN (16:44)
[2019-01-26] MEDS ORDERED: CLINDAMYCIN 600 MG in DEXTROSE 5% 50 ML IV SCH (17:00)
[2019-01-26] MEDS: SENNA 8.6 MG TAB PO SCH (20:29)
[2019-01-26] MEDS: DOCUSATE SODIUM 100 MG CAP PO SCH (20:29)
[2019-01-26] MEDS: ASPIRIN 81 MG ECTAB PO SCH (20:29)
[2019-01-26] MEDS: VANCOMYCIN HCL 1,250 MG in SODIUM CHLORIDE 0.9% 250 ML IV SCH (23:12)
[2019-01-27] MEDS: ACETAMINOPHEN 500 MG TAB PO SCH ×3 (05:05→22:11)
[2019-01-27 06:20] LABS: Hematocrit (blood only) 33.4 % (42-52); Hemoglobin 11.4 g/dL (14.0-18.0); Mean Corpuscular Hgb Conc 34.1 g/dL (32-36); Mean Corpuscular Volume 95.2 fL (80-100); Mean Platelet Volume 10.5 fL (7.4-10.4); Platelet Count 181 K/uL (130-400); RDW Coefficient of Variation 14.2 % (11.5-14.5); RDW Standard Deviation 49.5 fL (36.4-46.3); Red Blood Count 3.51 M/uL (4.7-6.1); White Blood Count 6.85 K/uL (4.8-10.8)
[2019-01-27 06:48] LABS: BUN Creatinine Ratio 8.3 (10-20); Calcium 8.2 mg/dl (8.5-10.1); Creatinine Clr Calc Pharmacy 145.6 ml/min; Est GFR (African American) 130.4; Est GFR (Non-African American) 112.5; Potassium 3.6 mmol/L (3.5-5.1)
--- NOTE | 2019-01-27 07:05 | Orthopedic Progress Note ---
Date of Service January 27, 2019 Assessment & Plan (1) Infection of prosthetic right knee joint: POD #1 s/p POD #1 s/p I&D right knee wound open arthrotomy with poly- change WBAT w/ walker, gentle ROM DVT proph with MITZI/SCD/ASA gram stain showing rare gram positive cocci- ID consult, vanco pending additional culture results Subjective POD #1 s/p I&D right knee wound open arthrotomy with poly-change Review of Systems Constitutional: no fever, no chills and no sweats Respiratory: no cough and no dyspnea Cardiovascular: no chest pain and no dyspnea Gastrointestinal: no abdominal pain, no nausea and no vomiting Physical Exam Physical Exam: Vital Signs Temp Pulse Pulse Pulse Resp BP Pulse Ox 01/27/19 03:55 37.2 C 84 18 164/94 H 98 01/26/19 23:00 37.3 C 77 18 166/92 H 98 01/26/19 19:43 37.5 C 79 16 170/84 H 98 01/26/19 16:29 37.1 C 74 18 170/91 H 100 01/26/19 14:36 37.2 C 73 16 131/79 95 01/26/19 13:26 37.2 C 79 18 115/75 99 01/26/19 12:25 37.2 C 67 18 133/78 96 01/26/19 11:25 37.4 C 72 16 113/70 94 01/26/19 11:15 37.2 C 68 18 124/72 96 01/26/19 11:05 72 18 133/77 96 01/26/19 10:55 71 18 119/79 97 01/26/19 10:45 72 18 124/75 100 01/26/19 10:39 37.7 C H 79 18 118/67 100 Intake and Output 01/26/19 01/27/19 01/27/19 22:59 06:59 14:59 Intake Total 1125.667 / 3644.00 0 1238.333 / 3644.00 0 Output Total 550 / 613 Balance 575.667 / 3031.000 1225.333 / 3031.00 0 Intake: IV 875.667 / 1974.000 998.333 / 1974.000 CLEOCIN 600 mg In 54 ml @ 100 54 / 54 mls/hr IV PREO P DEANDRA Rx#: [id number] Nss 1000ML 1,0 00 ml @ 100 mls/ 276.667 / 1000.000 723.333 / 1000.000 hr IV .Q10H SC H Rx#:[id number] Vancomycin HCl 1,250 mg In Nss 275 / 275 250 ml @ 125 m ls/hr IV Q8H DEANDRA Rx#:[id number] Vancomycin HCl 2,250 mg In Nss 545 / 545 500 ml @ 200 m ls/hr IV ONE ONE Rx#:[id number] Oral 250 / 670 240 / 670 Output: Urine 500 / 502 2 / 502 Drain Output 50 / 105 10 / 105 Right Knee 50 / 105 10 / 105 # Bowel Movement s Other: # Unmeasured Voi ds 3 Constitutional: WD/WN, vitals as above no acute distress Musculoskeletal: Right Leg: NVDI, calf SNT, negative brandie sign. DP palpable, able to wiggle toes/ankle movement without difficulty. dressing clean dry and intact. Results & Data Vital Signs (Past 12 Hours) Vital Signs Temp Pulse Resp BP Pulse Ox 01/27/19 03:55 37.2 C 84 18 164/94 H 98 01/26/19 23:00 37.3 C 77 18 166/92 H 98 01/26/19 19:43 37.5 C 79 16 170/84 H 98 Laboratory Results Laboratory Results WBC 6.85 K/uL (4.8-10.8) 01/27/19 05:33 RBC 3.51 M/uL (4.7-6.1) L 01/27/19 05:33 Hgb 11.4 g/dL (14.0-18.0) L 01/27/19 05:33 Hct 33.4 % (42-52) L 01/27/19 05:33 MCV 95.2 fL (80-100) 01/27/19 05:33 MCH 32.5 pg (25-34) 01/27/19 05:33 MCHC 34.1 g/dL (32-36) 01/27/19 05:33 RDW Std Deviation 49.5 fL (36.4-46.3) H 01/27/19 05:33 RDW Coeff of Murtaza 14.2 % (11.5-14.5) 01/27/19 05:33 Plt Count 181 K/uL (130-400) 01/27/19 05:33 MPV 10.5 fL (7.4-10.4) H 01/27/19 05:33 Sodium 135 mmol/L (136-145) L 01/27/19 05:33 Potassium 3.6 mmol/L (3.5-5.1) 01/27/19 05:33 Chloride 103 mmol/L (98-107) 01/27/19 05:33 Carbon Dioxide 26 mmol/L (21-32) 01/27/19 05:33 Anion Gap 6.0 (3-11) 01/27/19 05:33 BUN 5 mg/dl (7-18) L 01/27/19 05:33 Creatinine 0.55 mg/dl (0.6-1.4) L 01/27/19 05:33 Est Cr Clr Drug Dosing 145.6 ml/min 01/27/19 05:33 Est GFR ( Amer) 130.4 01/27/19 05:33 Est GFR (Non-Af Amer) 112.5 01/27/19 05:33 BUN/Creatinine Ratio 8.3 (10-20) L 01/27/19 05:33 Glucose 83 mg/dl (70-99) 01/27/19 05:33 Calcium 8.2 mg/dl (8.5-10.1) L 01/27/19 05:33 Microbiology 01/26/19 09:31 Knee,Right Gram Stain - Final Diagnostic Findings XR knee RT 2V routine CLINICAL HISTORY: Surgical Post Op COMPARISON: 12/01/2018 DISCUSSION: Anatomic alignment posttotal right knee arthroplasty. Expected soft tissue postoperative change IMPRESSION: Good position post total right knee arthroplasty.
[2019-01-27] MEDS: OXYCODONE HCL IR 5 MG TAB (IMMEDIATE RELEASE) PO PRN ×3 (07:19→20:46)
--- NOTE | 2019-01-27 07:27 | Anesthesiology Progress Note ---
Date of Service January 27, 2019 Anesthesia Post Procedure Vital Signs Vital Signs: Temp Pulse Pulse Pulse Resp BP Pulse Ox 01/27/19 03:55 37.2 C 84 18 164/94 H 98 01/26/19 23:00 37.3 C 77 18 166/92 H 98 01/26/19 19:43 37.5 C 79 16 170/84 H 98 01/26/19 16:29 37.1 C 74 18 170/91 H 100 01/26/19 14:36 37.2 C 73 16 131/79 95 01/26/19 13:26 37.2 C 79 18 115/75 99 01/26/19 12:25 37.2 C 67 18 133/78 96 01/26/19 11:25 37.4 C 72 16 113/70 94 01/26/19 11:15 37.2 C 68 18 124/72 96 01/26/19 11:05 72 18 133/77 96 01/26/19 10:55 71 18 119/79 97 01/26/19 10:45 72 18 124/75 100 01/26/19 10:39 37.7 C H 79 18 118/67 100 Pain Intensity Right Knee: Pain Intensity: 0 Notes Mental Status: alert / awake / arousable and participated in evaluation Patient Amnestic to Procedure: Yes Nausea / Vomiting: adequately controlled Pain: adequately controlled Airway Patency, RR, SpO2: stable & adequate BP & HR: stable & adequate Hydration State: stable & adequate Neuraxial Anesthesia: was administered and sensory block resolved Anesthetic Complications: no major complications apparent and Pt Satisfied with anesthetic care
[2019-01-27] MEDS: VANCOMYCIN HCL 1,250 MG in SODIUM CHLORIDE 0.9% 250 ML IV SCH ×3 (08:07→22:11)
[2019-01-27] MEDS: ASPIRIN 81 MG ECTAB PO SCH ×2 (08:31→20:46)
[2019-01-27] MEDS: DOCUSATE SODIUM 100 MG CAP PO SCH ×2 (08:31→20:46)
[2019-01-27] MEDS: FELODIPINE 5 MG TABCR PO SCH (08:32)
[2019-01-27] MEDS: MULTIVITAMIN TAB PO SCH (08:32)
[2019-01-27] MEDS: PRAVASTATIN SOD 10 MG TAB PO SCH (08:33)
[2019-01-27] MEDS: ALLOPURINOL 300 MG TAB PO SCH (08:33)
[2019-01-27] MEDS ORDERED: NON-FORMULARY MEDICATION (Potassium 99 MG) PO SCH (09:00)
[2019-01-27] MEDS: SERTRALINE HCL 50 MG TABLET PO SCH (09:35)
[2019-01-27] MEDS: HYDROmorphone INJ 1 MG/ML SYRINGE IV PRN ×2 (09:53→23:16)
--- NOTE | 2019-01-27 11:20 | Infectious Disease Progress Nt ---
Date of Service January 27, 2019 Assessment & Plan (1) Infection of prosthetic right knee joint: agree with vanco pending additional culture results. will follow. Subjective pt seen in followup, OOB to chair. doing well. min pain, states he was up walking in hallway today, did well. denies f/c. no abd pain, no n/v/d, no cp, sob, cough, jernigan. dressing intact. tolerating vanco. OR culture pending, gpc on gram stain. afebrile. wbc 6.8. Review of Systems Review of Systems: All systems reviewed & are unremarkable except as noted in HPI & below Physical Exam Constitutional: WD/WN, vitals as above Eyes: PERRL, conjunctivae normal, anicteric sclerae ENMT: external ear and nose normal, oropharynx normal Neck: normal visual inspection Respiratory: normal respiratory effort, lungs clear to auscultation Cardiovascular: RRR, no murmur, no edema Gastrointestinal (Abdomen): normal bowel sounds, soft, nontender, no hepatosplenomegaly Musculoskeletal: no cyanosis or clubbing, extremities motor strength 5/5 Skin: no rashes, warm and dry Psychiatric: A+Ox3, euthymic affect Results & Data Vital Signs (Past 12 Hours) Vital Signs Temp Pulse Pulse Resp BP BP Pulse Ox 01/27/19 09:47 137/89 01/27/19 07:41 37.1 C 70 20 156/96 H 99 01/27/19 03:55 37.2 C 84 18 164/94 H 98 Laboratory Results Microbiology 01/26/19 09:31 Knee,Right Gram Stain - Final PG Care Time/CCT Total # of Minutes Spent Total Time Spent with Patient: Total time spent is greater than 50% in coordination of care (as documented) at patient's floor/unit and/or counseling patient:
[2019-01-27] MEDS ORDERED: VANCOMYCIN TROUGH ONE (15:30)
[2019-01-27] MEDS: SENNA 8.6 MG TAB PO SCH (20:47)
--- NOTE | 2019-01-27 23:18 | Pharmacy Report ---
Pharmacy Abx Dose Short Note - Date of Service January 27, 2019 - Assessment & Plan Assessment 63 year old M receiving Vancomycin 1250mg iv q8 for treatment of R TKA infection Day #2 of antimicrobial therapy. Plan Vancomycin * Trough level of 12.2 mcg/mL is subtherapeutic * Change to 1250 mg IV every 6 hours * dose may need increased to 1500mg if patient is still not therapeutic tomorrow * Goal trough level for knee infection: 15 to 20 mcg/mL * Trough level ordered for: 01/28/19 at 1530 Pharmacy will continue to follow and will adjust dose/frequency as necessary. Thank you.
[2019-01-28] MEDS: VANCOMYCIN HCL 1,250 MG in SODIUM CHLORIDE 0.9% 250 ML IV SCH ×3 (03:50→16:44)
[2019-01-28] MEDS: OXYCODONE HCL IR 5 MG TAB (IMMEDIATE RELEASE) PO PRN ×3 (05:59→16:15)
[2019-01-28] MEDS: ACETAMINOPHEN 500 MG TAB PO SCH ×3 (05:59→21:16)
[2019-01-28 06:34] LABS: Est GFR (African American) 129.4; Est GFR (Non-African American) 111.6
[2019-01-28] MEDS: ASPIRIN 81 MG ECTAB PO SCH ×2 (08:54→21:16)
[2019-01-28] MEDS: PRAVASTATIN SOD 10 MG TAB PO SCH (08:54)
[2019-01-28] MEDS: SERTRALINE HCL 50 MG TABLET PO SCH (08:54)
[2019-01-28] MEDS: FELODIPINE 5 MG TABCR PO SCH (08:55)
[2019-01-28] MEDS: MULTIVITAMIN TAB PO SCH (08:55)
[2019-01-28] MEDS: DOCUSATE SODIUM 100 MG CAP PO SCH ×2 (08:55→21:16)
[2019-01-28] MEDS: ALLOPURINOL 300 MG TAB PO SCH (08:55)
--- NOTE | 2019-01-28 10:48 | Orthopedic Progress Note ---
Date of Service January 28, 2019 Assessment & Plan (1) Infection of prosthetic right knee joint: POD #2 s/p POD #1 s/p I&D right knee wound open arthrotomy with poly- change WBAT w/ walker, gentle ROM DVT proph with MITZI/SCD/ASA Cultures growing coag negative staph and corynebacterium. Continue vancomycin, awaiting final cultures and recommendations from ID. Subjective Patient is POD #2 right knee I&D and poly-exchange. He is seen sitting in bedside chair. He is comfortable without complaints. Preliminary culture results are coag negative staph and corynebacterium. He is currently on vancomycin. Denies chest pain, shortness of breath, nausea, vomiting, fevers, chills. Review of Systems Review of Systems: All systems reviewed & are unremarkable except as noted in HPI & below Physical Exam Physical Exam: Right knee Prevena wound VAC in place. Dressing to old Hemovac site in place, clean dry and intact. Toes mobile, no calf tenderness. Constitutional: WD/WN, vitals as above Results & Data Vital Signs (Past 12 Hours) Vital Signs Temp Pulse Pulse Resp BP Pulse Ox 01/28/19 06:16 37.0 C 73 16 143/90 H 96 01/27/19 23:17 37.2 C 78 18 118/77 94
--- NOTE | 2019-01-28 14:38 | Infectious Disease Progress Nt ---
Date of Service January 28, 2019 Assessment & Plan (1) Infection of prosthetic right knee joint: unclear significance of PATENT COUNSEL however with wound opening, would prefer to continue with vanco upon d/c. Will need picc line prior to d/c. would suggest 4 weeks vanco therapy, weeky cbc, cmp, esr while on therapy. Can follow up with ID post d/c. Subjective pt seen in followup, oob to chair. denies pain in knee. no f/c. no abd pain, no n/v/d. remains on vanco, tolerating well. OR culture growing PATENT COUNSEL and corybebacterium. vac in place. no cp, sob, cough, jernigan. no gu symptoms. states he is to go home tomorrow. Review of Systems Review of Systems: All systems reviewed & are unremarkable except as noted in HPI & below Physical Exam Constitutional: WD/WN, vitals as above Eyes: PERRL, conjunctivae normal, anicteric sclerae ENMT: external ear and nose normal, oropharynx normal Neck: normal visual inspection Respiratory: normal respiratory effort, lungs clear to auscultation Cardiovascular: RRR, no murmur, no edema Gastrointestinal (Abdomen): normal bowel sounds, soft, nontender, no hepatosplenomegaly Musculoskeletal: no cyanosis or clubbing, extremities motor strength 5/5 Skin: no rashes, warm and dry vac in place, no surrounding warmth, erythema, non tender Psychiatric: A+Ox3, euthymic affect Results & Data Vital Signs (Past 12 Hours) Vital Signs Temp Pulse Resp BP Pulse Ox 01/28/19 06:16 37.0 C 73 16 143/90 H 96 Laboratory Results Microbiology 01/26/19 09:31 Knee,Right Gram Stain - Final 01/26/19 09:31 Knee,Right Aerobic and Anaerobic Culture - Preliminary Coag negative Staphylococcus Corynebacterium species PG Care Time/CCT Total # of Minutes Spent Total Time Spent with Patient: Total time spent is greater than 50% in coordination of care (as documented) at patient's floor/unit and/or counseling patient:
[2019-01-28] MEDS ORDERED: VANCOMYCIN TROUGH ONE (15:30)
--- NOTE | 2019-01-28 16:58 | Pharmacy Report ---
Pharmacy Abx Dose Short Note - Date of Service January 28, 2019 - Assessment & Plan Assessment 63 year old M receiving Vancomycin 1250mg iv q8 for treatment of R TKA infection Day #3 of antimicrobial therapy. Plan Vancomycin * Trough level of 20.7 mcg/mL is slightly supratherapeutic * Change to 1250 mg IV every 8 hours * Goal trough level: 15 to 20 mcg/mL * Trough or random level ordered for: 01/29 at 1530 Pharmacy will continue to follow and will adjust dose/frequency as necessary. Thank you.
[2019-01-28] MEDS: SENNA 8.6 MG TAB PO SCH (21:16)
[2019-01-28] MEDS: HYDROmorphone INJ 1 MG/ML SYRINGE IV PRN (21:56)
[2019-01-29] MEDS: VANCOMYCIN HCL 1,250 MG in SODIUM CHLORIDE 0.9% 250 ML IV SCH ×2 (00:01→07:29)
[2019-01-29] MEDS: ACETAMINOPHEN 500 MG TAB PO SCH ×2 (06:00→13:27)
[2019-01-29 06:15] LABS: Creatinine Clr Calc Pharmacy 148.3 ml/min; Est GFR (African American) 131.3; Est GFR (Non-African American) 113.3
[2019-01-29] MEDS: OXYCODONE HCL IR 5 MG TAB (IMMEDIATE RELEASE) PO PRN ×3 (07:28→16:56)
[2019-01-29] MEDS: ALLOPURINOL 300 MG TAB PO SCH (08:30)
[2019-01-29] MEDS: MULTIVITAMIN TAB PO SCH (08:30)
[2019-01-29] MEDS: DOCUSATE SODIUM 100 MG CAP PO SCH (08:30)
[2019-01-29] MEDS: PRAVASTATIN SOD 10 MG TAB PO SCH (08:31)
[2019-01-29] MEDS: SERTRALINE HCL 50 MG TABLET PO SCH (08:31)
[2019-01-29] MEDS: ASPIRIN 81 MG ECTAB PO SCH (08:31)
[2019-01-29] MEDS: FELODIPINE 5 MG TABCR PO SCH (08:32)
--- NOTE | 2019-01-29 08:39 | Orthopedic Progress Note ---
Date of Service January 29, 2019 Assessment & Plan (1) Infection of prosthetic right knee joint: POD #3 s/p I&D right knee wound open arthrotomy with poly-change WBAT w/ walker, gentle ROM DVT proph with MITZI/SCD/ASA Cultures growing coag negative staph and corynebacterium. Infectious disease recommending IV vancomycin. PICC line consent is signed and ordered to be placed. Patient currently is getting his dose of vancomycin. He may need to stay additional day to make sure PICC line is functioning well to run a dose of vancomycin through it. Continue PT protocol. Subjective Postop day 3 status post irrigation debridement with polyethylene bearing change right knee Patient is awake and alert sitting up eating breakfast in his bed. No complaints today. Comfortable. Pain is controlled. Discussed need for PICC line. Dr. Collins present to have patient sign for consent. Physical Exam Physical Exam: Prevena wound VAC in place and functioning. No overt drainage in the collection unit. Mild bruising around the knee. Calves are soft and nontender. Neurovascular intact. Toes are mobile. Results & Data Vital Signs (Past 12 Hours) Vital Signs Temp Pulse Pulse Resp BP Pulse Ox 01/29/19 06:50 37.5 C 73 18 167/94 H 94 01/28/19 23:42 37 C 66 16 139/73 97
--- NOTE | 2019-01-29 10:58 | Infectious Disease Progress Nt ---
Date of Service January 29, 2019 Assessment & Plan (1) Infection of prosthetic right knee joint: unclear significance of [employer] however with wound opening, would prefer to continue with vanco upon d/c. Will need picc line prior to d/c. would suggest 4 weeks vanco therapy, weeky cbc, cmp, esr while on therapy. Can follow up with ID post d/c. If Dapto approved, would suggest 500mg daily, will need weekly cbc, cmp, esr, cpk while on therpay, hold statin. discussed with primary. ok for d/c from ID standpoint when otherwise stable. Subjective pt remains on vanco, s/p picc line. tolerating abx. checking with insurance to see if Dapto if affordable to give once daily option. likely d/c in am. afebrile. Results & Data Vital Signs (Past 12 Hours) Vital Signs Temp Pulse Pulse Resp BP Pulse Ox 01/29/19 08:35 65 139/79 95 01/29/19 06:50 37.5 C 73 18 167/94 H 94 01/28/19 23:42 37 C 66 16 139/73 97 Laboratory Results Microbiology 01/26/19 09:31 Knee,Right Gram Stain - Final 01/26/19 09:31 Knee,Right Aerobic and Anaerobic Culture - Preliminary Coag negative Staphylococcus Corynebacterium species PG Care Time/CCT Total # of Minutes Spent Total Time Spent with Patient: Total time spent is greater than 50% in coordination of care (as documented) at patient's floor/unit and/or counseling patient:
[2019-01-29] MEDS ORDERED: DAPTOmycin 500 MG in SYRINGE 0 ML IV SCH (12:30)
[2019-01-29] MEDS ORDERED: VANCOMYCIN TROUGH ONE (15:30)
--- NOTE | 2019-02-02 14:10 | Discharge Summary ---
DISCHARGE DIAGNOSES: Wound dehiscence, right knee/right total knee infection. SECONDARY DIAGNOSES: Benign prostatic hypertrophy, carotid stenosis, depression, ETOH abuse, gout, hearing loss, hyperlipidemia, hypertension, osteoarthritis. CONSULTS: Dr. Laurie Crisostomo. COMPLICATIONS: None. 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 Martins on 01/26/2019. BRIEF HISTORY: As dictated in the history and physical. HOSPITAL SUMMARY: The patient was admitted on the above-noted date and had the above-noted surgery performed, which he tolerated well. It was found that he had through his wound dehiscence, an open area in his retinacular repair that went into the joint. The infection continued into the joint itself, which that time, open irrigation and debridement were performed and polyethylene bearing change was done which he tolerated well. Dr. Crisostomo was consulted from infectious disease to follow along for antibiotic choices and she continued to see the patient during his stay. He was initially started on vancomycin and plans were to follow the cultures. On his first postoperative day, he had no complaints and was comfortable. Pain was controlled. Vital signs were stable and he was started on physical therapy protocol and continued on DVT prophylaxis and pain management as well as IV antibiotics with infectious disease following as noted. By his second postoperative day, he was seen at the bedside and was comfortable without complaints. Preliminary cultures were showing coag-negative staph and corynebacterium and he had denied any chest pain, shortness of breath, nausea, vomiting or fevers or chills. Right knee Prevena wound VAC was in place and toes were mobile and calves were nontender. Vital signs were stable and he was continued on his IV antibiotics. Dr. Crisostomo's recommendation of PICC line and vancomycin for 4 weeks was then placed and a PICC line was ordered. By his third postoperative day, he was awake and alert and sitting up eating breakfast and had no complaints. Pain was controlled. A PICC line as noted was placed. His Prevena wound VAC was functioning. No overt drainage. Mild bruising around the knee was noted. Calves were soft, nontender, neurovascularly intact. Toes were mobile. Vital signs stable. I discussed the vancomycin dosage with Dr. Crisostomo. The patient was requiring q. 16 dosage and it was felt that daptomycin would be a better choice 500 mg IV daily for 4 weeks to make it a little bit easier on the patient's dosing schedule. Case management had been consulted and continued to work to get home health and IV is set up for the patient. This was all then approved by 01/29/2019 for him to go home with the IV daptomycin. He was otherwise remaining stable and progressing his PT and it was felt he could be discharged to home on 01/29/2019. For further review, please see chart. LABORATORY AND X-RAY DATA: As per chart. DISCHARGE INSTRUCTIONS: The patient was discharged home in satisfactory condition on 01/29/2019. Diet: Regular. Activity: Weightbearing as tolerated on the right lower extremity with walker. Follow TK instruction sheets and special care instructions as noted. The patient was also noted that he will be on daptomycin for 4-6 weeks per [facility] infectious disease team. Home health would help with antibiotics and PICC line care plan for weekly blood draws with results being sent to Dr. Crisostomo. Any changes to the dose or type of antibiotic would be done through Dr. Crisostomo. Do not take a pravastatin while taking the IV antibiotic, daptomycin. Follow up with Dr. Martins in 2 weeks. The patient is to call for appointment if one has not been made for you. Follow up with Dr. Crisostomo in 14 days, call to make an appointment. DISCHARGE MEDICATIONS: Acetaminophen 1000 mg p.o. q. 8 hours, aspirin 81 mg p.o. b.i.d., daptomycin 500 mg IV daily, oxycodone 5-10 mg p.o. q. 6 hours p.r.n., sennosides 17.2 mg p.o. at bedtime. Resume home meds as listed. Stop taking previous aspirin dosage and stop taking previous oxycodone dosage and stop taking pravastatin.
== END 2019-01-29 17:07 | disposition home health service (06) | DRG 467 ==
LOC: ASU 05:28 → 3E 10:27